=== PATIENT | female | born 1995 | race Caucasian/White ===

== ENCOUNTER → 2017-09-16 14:34 | Outpatient (REF) | payer BC, SELFPAY | LOC: LAB 14:34 | PROVIDERS: Family Provider Nurse Practitioner Obstetrics & Gynecology; PCP Family Medicine; Visit Provider Nurse Practitioner Obstetrics & Gynecology | DX: Z34.90 Encounter for supervision of normal pregnancy, unspecified, unspecified trimester (principal) | CPT/HCPCS: 86403 ==

== ENCOUNTER 2017-09-23 19:32 | Inpatient (IN) | payer BC, SELFPAY ==
[2017-09-23 15:24] VITALS: BP 118/69; PULSE 103; RESP 16; TEMP 36.4; O2SAT 97; BMI 33.9
[2017-09-23 16:33] LABS: Microscopic, Urine URINE MICROSCOPIC (MICROSCOPIC)
[2017-09-23 16:35] LABS: Appearance,Urine CLEAR (Clear); Bilirubin,Urine Negative (Negative); Blood, Urine Negative (Negative); Color,Urine YELLOW (Yellow); Glucose,Urine (UA) Negative (Negative); Ketones,Urine 1+ (Negative); Leukocyte Esterase,Urine TRACE (Negative); Nitrate,Urine Negative (Negative); PH,Urine 7.5 (5.0-8.5); Protein,Urine Negative (Negative); Urobilinogen,Urine 0.2 EU/dl (0.2)
[2017-09-23 16:47] LABS: Bacteria,Urine 2+ /lpf; Squamous Epithelial Cell,Urine 20-50 #/hpf (0-5)
--- NOTE | 2017-09-24 07:27 | P.PN_ITS ---
Internal Medicine - PN: Subj *Date: 09/24/17 *Time: 07:26 Interval history: She has continued to have retractions overnight. She has changed her cervix from 3-5 cm. He had tried to spur with fluids and Brethine however she continued to progress. As result of that we will go ahead and deliver her today. Exam Vital signs and Labs for Last 24 Hours: Temp Pulse Resp BP Pulse Ox 97.6 F 103 H 16 118/69 97 09/23/17 15:24 09/23/17 15:24 09/23/17 15:24 09/23/17 15:24 09/23/17 15:24 Laboratory Results - last 24 hr 09/23/17 15:05: Urine Color Yellow, Urine Appearance Clear, Urine pH 7.5, Ur Specific [place] 1.020, Urine Protein Negative, Urine Glucose (UA) Negative, Urine Ketones 1+, Urine Blood Negative, Urine Nitrate Negative, Urine Bilirubin Negative, Urine Urobilinogen 0.2, Ur Leukocyte Esterase Trace, Urine RBC None, Urine WBC 5-10, Ur Squamous Epith Cells 20-50, Urine Bacteria 2+ I & O for Last 24 hours: Intake & Output 09/21/17 09/22/17 09/23/17 09/24/17 11:59 11:59 11:59 11:59 Weight 210 lb - Constitutional no acute distress Assessment and Plan - Assessment and plan all Dx Assessment and Plan for all problems:: Since she has progressed on her own overnight we will ahead and deliver her today.
[2017-09-24 07:55] LABS: Basophils % 0.5 % (0.1-2.0); Eosinophils # 0.1 K/mm3 (0.0-0.4); Eosinophils % 0.9 % (0.1-12.0); Hematocrit 30.8 % (37.0-47.0); Hemoglobin 9.8 g/dL (12.2-16.2); Lymphocytes # 2.3 K/mm3 (0.7-4.5); Lymphocytes % 31.2 K/mm3 (10-50); Mean Corpuscular Hemoglobin 25.1 pg (27.0-31.2); Mean Corpuscular Volume 78.4 fl (81-99); Mean Platelet Volume 8.2 fl (7.4-10.4); Monocytes # 0.4 K/mm3 (0.1-1.0); Monocytes % 5.8 % (1.7-9.3); Neutrophils # 4.5 K/mm3 (1.8-7.8); Neutrophils % 61.7 % (37.0-80.0); Platelet Count 205 K/mm3 (142-424); Red Blood Count 3.92 M/mm3 (4.20-5.40); Red Cell Distribution Width 15.1 % (11.5-17.5); White Blood Count 7.3 K/mm3 (4.8-10.8)
--- NOTE | 2017-09-24 10:25 | HMH.LABNOT ---
Labor Note - Subjective: Date: 09/24/17 Time: 10:25 regular contraction - Objective: NST:: Reactive Contractions:: every 2-3 minutes Cervical Dilation:: 4-5 Effacement:: 75% Station: -2 Membranes: articially ruptured - Fetus: Monitoring?: Yes monitoring type:: Internal (I inserted an IUPC and scalp clip) - Assessment: Labor progressing?: Yes Cephalopelvic disproportion?: No Patient Problems: All Active Problems (Acute) - Plan: Anesthesia for epidural?: Yes Continue to labor down?: Yes Plan for ?: No Continue to monitor?: Yes Start pushing?: No
--- NOTE | 2017-09-24 10:25 | HMH.ANESCL ---
[facility] Anesthesia Checklist - Patient Identification Patient Identification: Arm Band - Structural Data Admitted From: Inpatient Planned Operative Procedure/s: labor epidural Consent for Planned Operative Procedure(s) Verified: Yes Verified Documents: Surgical Consent - Airway Assessment C-Spine Mobility Assessed: Yes TMJ Mobility Assessed: Yes Dentition: Good Dentition - Neurological Assessment Level of Consciousness: Awake, Alert - Anesthesia Plan Anesthesia Risk discussed: Yes Anesthesia Plan: Verified ASA Class: II Anesthesia Type: Epidural [facility] Anesthesia HX I have reviewed the patient's past medical history: Yes Medical History: Reports:: Hypertension, MRSA (BREAST 4 YRS AGO) Denies:: Cancer, Diabetes Mellitus Type 1, Diabetes Mellitus Type 2 Laterality Cases: Bilateral: Tonsillectomy, Other Other Surgeries: Yes: Other Amputation: No Fractures: No Comment: labor epid x 2 w vag delivery *Family Hx:: Cancer, Asthma, Hyperlipidemia, Heart Attack, Hypertension, Diabetes, Stroke, Thyroid Disorder
--- NOTE | 2017-09-24 10:34 | P.HP_ITS ---
OB - H&P: HPI Antepartum - History of Present Illness Chief complaint: Contractions - History of Present Criteria for establishing EDC:: LMP confirmed by 1st trimester US care: good care Ultrasounds: normal 1st trimester US, normal mid trimester US Obstetrical complications: none Medical complications: none Planning to breastfeed?: Yes [facility] History I have reviewed the patient's past medical history: Yes Medical History: Reports:: Hypertension, MRSA (BREAST 4 YRS AGO) Denies:: Cancer, Diabetes Mellitus Type 1, Diabetes Mellitus Type 2 Laterality Cases: Bilateral: Tonsillectomy, Other Other Surgeries: Yes: Other Amputation: No Fractures: No - *Social History Smoking Status: Never smoker Alcohol Intake: never Substance Use Type: denies use Occupational Status: unemployed Household Members: spouse, children - Psychiatric History Expresses thoughts of harming self/others: None Suicide Plan Description: No Plan *Family Hx:: Cancer, Asthma, Hyperlipidemia, Heart Attack, Hypertension, Diabetes, Stroke, Thyroid Disorder Para: 2 Review of Systems - Review of Systems Review of systems:: pertinent systems reviewed and negative unless documented below Meds Home Medications Medication Instructions Recorded Confirmed Type ferrous sulfate 325 mg (65 mg 325 mg PO DAILY tab 08/18/17 09/24/17 History iron) tablet 1 tab PO DAILY 08/18/17 09/24/17 History vitamin,calcium,echpzpix-pkir-cmcmz acid tablet Allergies Allergy/AdvReac Type Severity Reaction Status Date / Time No Known Allergies Allergy Verified 09/23/17 15:22 OB - H&P: Exam - Physical Exam Vital signs: Temp Pulse Resp BP Pulse Ox 97.6 F 103 H 16 118/69 97 09/23/17 15:24 09/23/17 15:24 09/23/17 15:24 09/23/17 15:24 09/23/17 15:24 - Constitutional no acute distress - Routine HEENT Exam Head: Present: normocephalic - Routine Neck Exam Present: supple OB - Results - Labs Labs: Short CBC 09/24/17 Range/Units 06:30 WBC 7.3 (4.8-10.8) K/mm3 Hgb 9.8 L (12.2-16.2) g/dL Hct 30.8 L (37.0-47.0) % Plt Count 205 (142-424) K/mm3 Urine 02/13/18 Range/Units 15:05 Urine Color Yellow (Yellow) Urine Appearance Clear (Clear) Urine pH 7.5 (5.0-8.5) Ur Specific [place] 1.020 (1.005-1.030) Urine Protein Negative (Negative) Urine Glucose (UA) Negative (Negative) OB - A/P Antepartum (1) labor in third trimester with delivery Current visit: Yes Status: Acute - Additional Plan Plan: expectant management (She had been admitted overnight and was having regular contractions. She changed her cervix to 5 cm. As result of this we are electing to deliver her.) Planning to breastfeed?: Yes
--- NOTE | 2017-09-24 12:20 | HMH.LABNOT ---
Labor Note - Subjective: Date: 09/24/17 Time: 12:21 regular contraction - Objective: Contractions:: every 2-3 minutes Cervical Dilation:: 5 Effacement:: 75% Station: -1 Membranes: articially ruptured - Fetus: Monitoring?: Yes monitoring type:: Internal - Assessment: Labor progressing?: Yes Cephalopelvic disproportion?: No Patient Problems: All Active Problems labor in third trimester with delivery (Acute) (Acute) - Plan: Anesthesia for epidural?: Yes Continue to labor down?: Yes Plan for ?: No Continue to monitor?: Yes Start pushing?: No
--- NOTE | 2017-09-24 13:24 | HMH.LABNOT ---
Labor Note - Subjective: Date: 09/24/17 Time: 13:24 regular contraction - Objective: NST:: Reactive Contractions:: every 2-3 minutes Cervical Dilation:: 9-10 Effacement:: 100% Station: +1 Membranes: articially ruptured - Fetus: Monitoring?: Yes monitoring type:: Internal - Assessment: Labor progressing?: Yes Cephalopelvic disproportion?: No Patient Problems: All Active Problems labor in third trimester with delivery (Acute) (Acute) - Plan: Anesthesia for epidural?: Yes Continue to labor down?: Yes Plan for ?: No Continue to monitor?: Yes Start pushing?: Yes
--- NOTE | 2017-09-24 13:47 | P.PCN_ITS ---
- Delivery Note Delivery Date:: 09/24/17 Delivery Time:: 13:33 Anesthesia Type: Epidural Was labor medically induced?: No Induction method: none delivered prior to 39 weeks?: Yes Justification for early elective delivery:: Active Labor Gender: Female at 1 minute: 7 at 5 minutes: 8 AF:: Clear fluid Delivery Procedure:: She is a 21-year-old 3 para 2 who was 37+ weeks gestational age. She was admitted on the evening of September 23, 2017 with regular contractions. We attempted to stop her labor with IV fluids and Brethine. However she continued to have contractions overnight and progressed from 3-5 cm overnight. As result of her progression overnight and our inability to stop her labor we ruptured membranes on the morning of September 24, 2017. Under labor epidural she progressed to full dilation and delivered spontaneously a liveborn female child at 1:33 PM in the afternoon of September 24, 2017. The baby had Apgars of 7 at 1 minute and 8 at 5 minutes. On deliver the head it was noted that there was a tight nuchal cord. I deliver the rest of the 's body atraumatically. This was followed by reduction of the nuchal cord. The baby cried spontaneously and the oral pharynx and nasopharynx were bulb suctioned. We then record pulse for probably 1 minute. The cord was then doubly clamped and cut and the was placed on the mother's abdomen for further care. The nurses assigned Apgars of 7 at 1 minute and 8 at 5 minutes. We then obtained cord blood as well as cord pH. Using gentle traction on the cord and countertraction the fundus I was able to easily do the placenta intact. He had a normal three-vessel cord. There were no perineal or vaginal laceration. She has a positive blood, 09. She was group B streptococcus negative. She plans to breast-feed. Delivery Nurse is Dr. Ruggiero. Estimated blood loss was approximately 400 cc. Placental Delivery Description: Spontaneous
[2017-09-24 13:51] LABS: Cord Blood PH 7.37 (7.35-7.45)
[2017-09-25 06:48] LABS: Hematocrit 31.2 % (37.0-47.0); Hemoglobin 9.9 g/dL (12.2-16.2)
[2017-09-25 08:35] VITALS: BP 120/75; PULSE 70; RESP 18; TEMP 36.8; O2SAT 98
--- NOTE | 2017-09-25 10:34 | HMH.ACPN2 ---
Internal Medicine - PN: Subj *Date: 09/25/17 *Time: 10:34 Interval history: She is doing well this morning. She is eating and drinking and eating. She is breast-feeding. Her lochia is normal. Exam Vital signs and Labs for Last 24 Hours: Temp Pulse Resp BP Pulse Ox 97.6 F 103 H 16 118/69 97 09/23/17 15:24 09/23/17 15:24 09/23/17 15:24 09/23/17 15:24 09/23/17 15:24 Laboratory Results - last 24 hr 09/24/17 13:40: Cord ABG pH 7.37 09/25/17 06:30: Hgb 9.9 L, Hct 31.2 L I & O for Last 24 hours: Intake & Output 09/22/17 09/23/17 09/24/17 09/25/17 11:59 11:59 11:59 11:59 Weight 210 lb Microbiology Reports for the Last 24 Hours: Microbiology 09/23/17 15:05 Urine,Clean Catch Urine Culture - Final Multiple organisms, suggests contamination. - Constitutional no acute distress Assessment and Plan (1) labor in third trimester with delivery Current visit: Yes Status: Acute Category: Medical Code(s): O60.14X0 - labor third trimester with delivery third trimester, not applicable or unspecified - Assessment and plan all Dx Assessment and Plan for all problems:: She continues to do well . She will be sent home tomorrow.
[2017-09-26 08:00] VITALS: BP 116/75; PULSE 70; RESP 18; TEMP 36.7; O2SAT 99
--- NOTE | 2017-09-26 08:12 | HMH.DCSUM ---
General - General Admission date: 09/23/17 Discharge date: 09/26/17 HPI HPI: She is a 21-year-old 3 now para 3 who is 37+ weeks gestational age. She came in in active labor having regular contractions. We attempted to stop her labor with both Brethine and IV fluids. She subsequently progressed overnight and as result of that we elected to deliver her. Objective Vital signs: Temp Pulse Resp BP Pulse Ox 98.2 F 70 18 120/75 98 09/25/17 08:35 09/25/17 08:35 09/25/17 08:35 09/25/17 08:35 09/25/17 08:35 no acute distress Hospital Course Hospital Course: She progressed from 3-5 cm overnight and as result of that we elected to deliver her. She had her membranes ruptured and under labor ball progressed to full dilation. She delivered spontaneously a liveborn female child at 1:33 PM in the afternoon of September 24, 2017. The baby was a liveborn female child weighing 7 lbs. 8 oz. with Apgars of 7 at 1 minute and 8 at 5 minutes. She has done well and has remained afebrile throughout her hospitalization. She is eating and drinking and ambulating. She is breast-feeding. She has a positive blood, she is rubella nonimmune and was group B streptococcus negative. She will receive MMR prior to discharge. She is discharged home to follow-up with me in approximately 2 weeks time she will continue with her vitamins and iron. She is just taking kkzw-pbu-uxkfaou analgesics for pain. DS: Diagnosis - Discharge Diagnosis (1) labor in third trimester with delivery Status: Acute Discharge Plan - Patient Discharge Instructions ACTIVITY: Continue current activity, No heavy lifting DIET: continue same diet - Follow up Plan Disposition: Home, Self-Usp Medications: Home Medications Medication Instructions Recorded Confirmed Type ferrous sulfate 325 mg (65 mg 325 mg PO DAILY tab 08/18/17 09/24/17 History iron) tablet 1 tab PO DAILY 08/18/17 09/24/17 History vitamin,calcium,jhqulahr-hiwq-aozen acid tablet Prescriptions/Medication Reconciliation: Continue vitamin,calcium,uhrfjgfa-utty-xcoit acid tablet 1 tab PO DAILY ferrous sulfate 325 mg (65 mg iron) tablet 325 mg PO DAILY tab
--- NOTE | 2017-09-26 08:15 | P.DS_ITS ---
General - General Admission date: 09/23/17 Discharge date: 09/26/17 HPI HPI: She is a 21-year-old 3 now para 3 who is 37+ weeks gestational age. She came in in active labor having regular contractions. We attempted to stop her labor with both Brethine and IV fluids. She subsequently progressed overnight and as result of that we elected to deliver her. Objective Vital signs: Temp Pulse Resp BP Pulse Ox 98.2 F 70 18 120/75 98 09/25/17 08:35 09/25/17 08:35 09/25/17 08:35 09/25/17 08:35 09/25/17 08:35 no acute distress Hospital Course Hospital Course: She progressed from 3-5 cm overnight and as result of that we elected to deliver her. She had her membranes ruptured and under labor ball progressed to full dilation. She delivered spontaneously a liveborn female child at 1:33 PM in the afternoon of September 24, 2017. The baby was a liveborn female child weighing 7 lbs. 8 oz. with Apgars of 7 at 1 minute and 8 at 5 minutes. She has done well and has remained afebrile throughout her hospitalization. She is eating and drinking and ambulating. She is breast- feeding. She has a positive blood, she is rubella nonimmune and was group B streptococcus negative. She will receive MMR prior to discharge. She is discharged home to follow-up with me in approximately 2 weeks time she will continue with her vitamins and iron. She is just taking over-the- counter analgesics for pain. DS: Diagnosis - Discharge Diagnosis (1) labor in third trimester with delivery Status: Acute Discharge Plan - Patient Discharge Instructions ACTIVITY: Continue current activity, No heavy lifting DIET: continue same diet - Follow up Plan Disposition: Home, Self-Prison Medications: Home Medications Medication Instructions Recorded Confirmed Type ferrous sulfate 325 mg (65 mg 325 mg PO DAILY tab 08/18/17 09/24/17 History iron) tablet 1 tab PO DAILY 08/18/17 09/24/17 History vitamin,calcium,uujpdzlu-inkg-ipyss acid tablet Prescriptions/Medication Reconciliation: Continue vitamin,calcium,cjiqodaj-stso-qgnjz acid tablet 1 tab PO DAILY ferrous sulfate 325 mg (65 mg iron) tablet 325 mg PO DAILY tab
== END 2017-09-26 10:20 | disposition home or self-care (01) | DRG 775 ==
LOC: OBOUT 19:34
PROVIDERS: Admitting Provider Obstetrics & Gynecology; Family Provider Nurse Anesthetist, Certified Registered; PCP Nurse Practitioner Obstetrics & Gynecology; Visit Provider Nurse Practitioner Obstetrics & Gynecology
DX: O69.81X0 Labor and delivery complicated by cord around neck, without compression, not applicable or unspecified (principal); Z37.0 Single live birth; Z3A.37 37 weeks gestation of pregnancy
CPT/HCPCS: 59409; 36415; 59025; 81001; 82800; 85014; 85018; 85025; 86850; 87086; 90707; 94761; C1758

== ENCOUNTER → 2020-03-20 12:09 | Outpatient (CLI) | payer BC, MEDICAID, SELFPAY ==
[2020-03-21 09:36] LABS: Hepatitis B Surf Ab Quant <3.1 mIU/mL (Immunity>9.9); Rubella Antibodies, IgG 1.32 index (Immune >0.99)
[2020-03-22 19:44] LABS: Measles Antibodies, IgG 24.8 AU/mL (Immune >16.4); Mumps Abs, IgG <9.0 AU/mL (Immune >10.9); Varicella Zoster IgG 1114 index (Immune >165); Varicella-Zoster Ab, IgM <0.91 index (0.00-0.90)
== END ==
PROVIDERS: Visit Provider Nurse Practitioner Family
DX: Z01.84 Encounter for antibody response examination (principal); Z11.59 Encounter for screening for other viral diseases
CPT/HCPCS: 36415; 86706; 86735; 86762; 86765; 86787

== ENCOUNTER 2021-02-08 21:53 | Emergency (ER) | payer SELFPAY ==
[2021-02-08 22:00] VITALS: BP 128/83; PULSE 69; RESP 18; TEMP 36.8; O2SAT 99; BMI 38.7
--- NOTE | 2021-02-08 23:23 | HMH.EDGENADL ---
ED Disposition Clinical Impression: Laceration Disposition: Home, Self-Care Condition on Discharge: Good Instructions: DI for Laceration Repair, DI for Wound Infection Additional Instructions: You have been evaluated for laceration to left index finger. Please keep wound clean and dry. Keep bandage in place. Keep dry for 24 hours. You may shower normally after that. Follow-up with your primary care doctor for wound check in 2 to 3 days. Have sutures removed in 10 days. Return to the emergency department for any new or worsening symptoms, pain, burning, redness, fevers. Referrals: Bere Schultz MD [Primary Care Provider] - Forms: Work/School Release Time of Disposition: 23:29 - Critical Care Critical Care Time: No Attestation: On 02/08/21, the high probability of a clinically significant, sudden or life threatening deterioration of the following system(s) required my full and direct attention, intervention and personal management. The time I documented below is in addition to time spent performing reported procedures but includes the following listed in this critical care notation. Medical Decision Making - Medical Records Medical records reviewed: Yes: I reviewed the patient's medical records. - Gregg Inquiry Pt receiving controlled substance: No Vital Signs: 02/08/21 22:00 Temperature 98.3 F Temperature Source Oral Pulse Rate [Right] 69 Respiratory Rate 18 Blood Pressure [Right Arm] 128/83 Blood Pressure Mean [Right Arm] 98 Blood Pressure Source [Right Arm] Automatic Cuff 02 Sat by Pulse Oximetry 99 Oxygen Delivery Method Room Air Orders (Tests/Meds): ED MEDICATIONS Discontinued Medications Generic Name Dose Route Start Last Admin Trade Name Freq PRN Reason Stop Dose Admin Lidocaine HCl 10 ml 02/08/21 22:55 Lidocaine 1% 10ml Mdv SQ 02/08/21 22:56 ONCE ONE Tetanus/Reduced Diphtheria/Acell Pertussis 0.5 ml 02/08/21 22:55 Tet/Diphth/Pert-Adult 0.5ml Syringe IM 02/08/21 22:56 .ONCE ONE Medical Decision Narrative: In summary this is a 25-year-old female presenting to the emergency department with a laceration to the dorsal aspect of her left index finger. Bleeding controlled on arrival. Flexion extension intact in the finger. Good capillary refill. Sensation intact. Tetanus updated. Anesthetized with lidocaine and repaired with sutures. Well-tolerated. Counseled on wound care. Stable for discharge General Adult HPI - General Chief complaint: Wound/Laceration Stated complaint: ao 02/08@2000LAC L INDEX FINGER Time Seen by Provider: 02/08/21 22:23 Mode of Arrival: Family Vehicle Limitations: No Limitations Description of Symptoms (Recalled from ER Triage Doc. by RN): Pt cut her pointer finger of her left hand this evening while attemting to remove a dog collar. It was a new knife and it slipped up and into her finger. Pt reports she had a tetanus shot 7yr ago. - History of Present Illness HPI narrative: 25 yo female presenting to the emergency department with a laceration to her left index finger. She was opening a box with a knife just prior to arrival. She cut the dorsal aspect of her left index finger. Has a laceration that is about 1 cm in size. Bleeding controlled on arrival. Pain is described as sharp, burning. No other lacerations. She is able to flex and extend the digit at all joints. No damage to the nail. Last tetanus shot was around 7 years ago. - Related Data Home Medications Medication Instructions Recorded Confirmed No Known Home Medications 10/03/19 10/03/19 Allergies Allergy/AdvReac Type Severity Reaction Status Date / Time No Known Allergies Allergy Verified 10/03/19 17:02 [facility] [place] History - Hepatitis A Screen Drug use history?: No High risk sexual behaviors?: No History of sexually transmitted infection?: No Currently employed?: No Childcare worker?: No Do you have indoor plumbing?: Yes Do you have e
[2021-02-08 23:43] VITALS: BP 126/76; PULSE 65; RESP 16; TEMP 36.8; O2SAT 99
== END 2021-02-08 23:45 | disposition home or self-care (01) ==
PROVIDERS: Emergency Provider Emergency Medicine; PCP Family Medicine
DX: S61.211A Laceration without foreign body of left index finger without damage to nail, initial encounter (principal); W26.0XXA Contact with knife, initial encounter; Y92.019 Unspecified place in single-family (private) house as the place of occurrence of the external cause; Z23 Encounter for immunization
CPT/HCPCS: 12001; 90715; 99281; 99282

== ENCOUNTER 2021-02-11 11:42 | Emergency (ER) | payer SELFPAY ==
[2021-02-11 11:49] VITALS: BP 121/82; PULSE 116; RESP 14; TEMP 37.1; O2SAT 99; BMI 37.1
--- NOTE | 2021-02-11 12:01 | HMH.EDUTC ---
[place] Disposition Clinical Impression: Strep throat Disposition: Home, Self-Care Condition on Discharge: Good Instructions: Sore Throat, DI for Pharyngitis/Tonsillopharyngitis -- Adult Additional Instructions: Drink plenty of fluids. Take tylenol or ibuprofen for pain or fever. Take the medications as directed. Follow up with your regular doctor. GO TO THE ER FOR ANY WORSENING SYMPTOMS Prescriptions: Ondansetron [Zofran 4mg ODT] 4 mg PO Q8HP PRN #12 tab.rapdis PRN Reason: Nausea Transmission Status: Received by [id number] Azithromycin [Z-Pedro Luis 250mg Tab*] 250 mg PO UD DOSE PK #6 tab Transmission Status: Received by [id number] Referrals: Bere Schultz MD [Primary Care Provider] - Forms: Work/School Release Time of Disposition: 12:16 Medical Decision Making - Medical Records Medical records reviewed: No: I reviewed the patient's medical records. - Gregg Inquiry Pt receiving controlled substance: No Vital Signs: 02/11/21 11:49 02/11/21 12:07 Temperature 98.7 F 98.7 F Temperature Source Oral Pulse Rate 116 H Pulse Rate [Left] 116 H Respiratory Rate 14 14 Blood Pressure 121/82 Blood Pressure [Right Arm] 121/82 Blood Pressure Mean [Right Arm] 95 Blood Pressure Source [Right Arm] Automatic Cuff Blood Pressure Position [Right Arm] Sitting 02 Sat by Pulse Oximetry 99 - Lab Data Lab results reviewed: Yes: I reviewed the patient's lab results. Lab Results 02/11/21 11:55: Strep Scn [facility] Positive A Orders (Tests/Meds): ORDERS Category Date Time Status Covid-19 Nasal PCR ([facility]) Routine Lab 02/11/21 12:16 Received [place] HPI - General Stated complaint: sore throat, headache, body aches Time Seen by Provider: 02/11/21 12:01 Mode of Arrival: Ambulatory Source of Information: Patient Limitations: No Limitations Description of Symptoms (Recalled from Triage Doc. by RN): pt c/o sore throat, body aches and a BAI. pt states her just got over strep. HEENT Symptoms (Recalled from RN notes): Yes (sore throat and BAI) Resp Symptoms (Recalled from RN notes): No Skin Symptoms (Recalled from RN notes): No MS Symptoms (Recalled from RN notes): No Functional Status (Recalled from RN notes): na - History of Present Illness Provider Complaint: She c/o sore throat, chilling, sinus congestion and pressure, and nausea since yesterday. - Related Data Previous Rx's Medication Instructions Recorded Azithromycin [Z-Pedro Luis 250mg Tab*] 250 mg PO UD DOSE PK #6 tab 02/11/21 Ondansetron [Zofran 4mg ODT] 4 mg PO Q8HP PRN #12 tab.rapdis 02/11/21 Allergies Allergy/AdvReac Type Severity Reaction Status Date / Time No Known Allergies Allergy Verified 10/03/19 17:02 - Worker's Comp Is this a Worker's Comp case?: No [facility] History - Hepatitis A Screen Drug use history?: No High risk sexual behaviors?: No History of sexually transmitted infection?: No Currently employed?: No Childcare worker?: No Do you have indoor plumbing?: Yes Do you have electricity?: Yes Attestation statement:: This patient has been screened for Hepatitis A risk factors. I have reviewed the patient's past medical history: Yes Medical History: Reports:: Hypertension, MRSA Denies:: Cancer, Diabetes Mellitus Type 1, Diabetes Mellitus Type 2 Laterality Cases: Bilateral: Tonsillectomy, Other Other Surgeries: Yes: Other Amputation: No Fractures: No Comment: labor epid x 2 w vag delivery - Social History Smoking Status: Never smoker Alcohol Intake: never Substance Use Type: denies use Occupational Status: unemployed Household Members: spouse, children Family Hx:: Cancer, Asthma, Hyperlipidemia, Heart Attack, Hypertension, Diabetes, Stroke, Thyroid Disorder Comment: Arthritis CONTENT CHECKER history: ROS Obtained: Yes All systems reviewed & no additional complaints - Constitutional Constitutional: Reports chills, Reports fever(s), Reports poor appetite, Rep
[2021-02-11 12:04] LABS: UTC Strep Screen (Rapid) Positive (Negative)
[2021-02-11 12:07] VITALS: BP 121/82; PULSE 116; RESP 14; TEMP 37.1
== END 2021-02-11 12:27 | disposition home or self-care (01) ==
PROVIDERS: Emergency Provider Nurse Practitioner Family; PCP Family Medicine
DX: J02.0 Streptococcal pharyngitis (principal); I10 Essential (primary) hypertension
CPT/HCPCS: 87880; 99202; G0463; U0003

== ENCOUNTER → 2021-12-14 08:29 | Outpatient (CLI) | payer BC, SELFPAY ==
[2021-12-14 09:49] LABS: HCG,Quantitative 965 mIU/ml (0-5.42)
== END ==
PROVIDERS: Visit Provider Nurse Practitioner Obstetrics & Gynecology
DX: Z34.90 Encounter for supervision of normal pregnancy, unspecified, unspecified trimester (principal)
CPT/HCPCS: 36415; 84702

== ENCOUNTER 2021-12-22 11:11 | Emergency (ER) | payer BC, SELFPAY ==
[2021-12-22 11:15] VITALS: BP 101/78; PULSE 96; RESP 20; TEMP 36.9; O2SAT 96; BMI 36.5
[2021-12-22 11:40] LABS: Strep Scrn Group A (Rapid) Negative (Negative)
--- NOTE | 2021-12-22 11:50 | HMH.EDUTC ---
[facility] [place] Disposition Clinical Impression: Strep throat Disposition: Home, Self-Care Condition on Discharge: Good Instructions: Strep Throat, DI for Strep Throat Additional Instructions: Drink plenty of fluids. Take tylenol or ibuprofen for pain or fever. Take the medications as directed. Follow up with your regular doctor. GO TO THE ER FOR ANY WORSENING SYMPTOMS Throw your tooth brush away and get a new one. Prescriptions: Brompheniramine/Pseudoephed/Dm [Bromfed Dm Cough Syrup] 5 ml PO Q6HP PRN #240 ml PRN Reason: Cough Transmission Status: Pending to [facility] Ibuprofen [Ibuprofen 800mg Tablet] 800 mg PO Q8HP PRN #30 tab PRN Reason: Moderate Pain Transmission Status: Pending to [facility] Amoxicillin [Amoxicillin 500mg Tab] 500 mg PO TID 10 Days #30 tab Transmission Status: Pending to [facility] Referrals: Bere Schultz MD [Primary Care Provider] - Time of Disposition: 11:54 Medical Decision Making - Medical Records Medical records reviewed: No: I reviewed the patient's medical records. - Gregg Inquiry Pt receiving controlled substance: No Vital Signs: 12/22/21 11:15 Temperature 98.5 F Temperature Source Oral Pulse Rate [Left Brachial] 96 H Respiratory Rate 20 Blood Pressure [Left Arm] 101/78 L Blood Pressure Mean [Left Arm] 85 Blood Pressure Source [Left Arm] Automatic Cuff Blood Pressure Position [Left Arm] Sitting 02 Sat by Pulse Oximetry 96 Oxygen Delivery Method Room Air - Lab Data Lab results reviewed: Yes: I reviewed the patient's lab results. Lab Results 12/22/21 11:20: Group A Strep Rapid Negative Orders (Tests/Meds): ORDERS Category Date Time Status Strep Screen Confirmation Stat Micro 12/22/21 11:20 Received [facility] HPI - General Stated complaint: sore throat,headache Time Seen by Provider: 12/22/21 11:50 - History of Present Illness Provider Complaint: She c/o sore throat for the past 2 days. Her was diagnosed with strep throat. - Related Data Previous Rx's Medication Instructions Recorded Amoxicillin [Amoxicillin 500mg Tab] 500 mg PO TID 10 Days #30 tab 12/22/21 Brompheniramine/Pseudoephed/Dm 5 ml PO Q6HP PRN #240 ml 12/22/21 [Bromfed Dm Cough Syrup] Ibuprofen [Ibuprofen 800mg 800 mg PO Q8HP PRN #30 tab 12/22/21 Tablet] Allergies Allergy/AdvReac Type Severity Reaction Status Date / Time No Known Allergies Allergy Verified 05/31/21 17:17 [facility] History - Hepatitis A Screen Attestation statement:: This patient has been screened for Hepatitis A risk factors. I have reviewed the patient's past medical history: Yes Medical History: Reports:: Hypertension, MRSA Denies:: Cancer, Diabetes Mellitus Type 1, Diabetes Mellitus Type 2 Laterality Cases: Bilateral: Tonsillectomy, Other Other Surgeries: Yes: Other Amputation: No Fractures: No Comment: labor epid x 2 w vag delivery - Social History Smoking Status: Never smoker Alcohol Intake: never Substance Use Type: denies use Occupational Status: employed Household Members: children, spouse Family Hx:: Cancer, Asthma, Hyperlipidemia, Heart Attack, Hypertension, Diabetes, Stroke, Thyroid Disorder Comment: Arthritis HEALTH INFORMATION TECHNICIAN history: ROS Obtained: Yes All systems reviewed & no additional complaints - Constitutional Constitutional: Reports as per HPI - Eyes Eyes: Denies eye discharge - ENT Ears, Nose, Mouth, and Throat: Reports as per HPI - Cardiovascular Cardiovascular: Denies chest pain - Respiratory Respiratory: Reports as per HPI Physical Exam - General General appearance: alert, in no apparent distress - Head Head exam: atraumatic, normocephalic, normal inspection - Eye Eye exam: Present: normal appearance, PERRL, EOMI - ENT ENT exam: Present: normal exam, normal oropharynx, mucous membranes moist, TM's normal bilaterally, normal external ear exam - Neck Neck exam: Present: normal
[2021-12-22 11:55] VITALS: BP 101/78; PULSE 96; RESP 20; TEMP 36.9; O2SAT 96
== END 2021-12-22 12:01 | disposition home or self-care (01) ==
PROVIDERS: Emergency Provider Nurse Practitioner Family; PCP Family Medicine
DX: J02.0 Streptococcal pharyngitis (principal); I10 Essential (primary) hypertension
CPT/HCPCS: 87430; 99212; G0463

== ENCOUNTER → 2022-02-08 13:23 | Outpatient (CLI) | payer OTHER, SELFPAY ==
[2022-02-08 14:03] LABS: Basophils # 0.1 K/mm3 (0-0.2); Basophils % 0.7 % (0.1-2.0); Eosinophils # 0.1 K/mm3 (0.0-0.4); Eosinophils % 1.4 % (0.1-12.0); Hematocrit 41.2 % (37.0-47.0); Hemoglobin 13.3 g/dL (12.2-16.2); Lymphocytes # 2.1 K/mm3 (0.7-4.5); Lymphocytes % 26.4 % (10-50); Mean Corpuscular HGB Conc 32.2 g/dL (31.8-35.4); Mean Corpuscular Hemoglobin 27.7 pg (27.0-31.2); Mean Platelet Volume 8.4 fl (7.4-10.4); Monocytes # 0.2 K/mm3 (0.1-1.0); Neutrophils # 5.4 K/mm3 (1.8-7.8); Neutrophils % 68.6 % (37.0-80.0); Platelet Count 250 K/mm3 (142-424); Red Cell Distribution Width 14.3 % (11.5-17.5); White Blood Count 7.9 K/mm3 (4.8-10.8)
[2022-02-10 08:13] LABS: Rubella Antibodies, IgG 1.22 index (Immune >0.99)
[2022-02-10 09:40] LABS: HIV Screen 4th Generation wRfx Non Reactive (Non Reactive); Hepatitis B Surface Antigen Negative (Negative); Hepatitis C Antibody 0.1 s/co ratio (0.0-0.9); Rapid Plasma Reagin Ab Titer Non Reactive (NonRea<1:1)
== END ==
PROVIDERS: PCP Family Medicine; Visit Provider Obstetrics & Gynecology
DX: Z34.90 Encounter for supervision of normal pregnancy, unspecified, unspecified trimester (principal); Z3A.01 Less than 8 weeks gestation of pregnancy
CPT/HCPCS: 36415; 85025; 86592; 86703; 86762; 86850; 87340; 87380; G0432

== ENCOUNTER → 2022-02-14 14:39 | Outpatient (CLI) | payer BC, SELFPAY | PROVIDERS: PCP Family Medicine; Visit Provider Obstetrics & Gynecology | DX: Z31.430 Encounter of female for testing for genetic disease carrier status for procreative management (principal); Z36.0 Encounter for antenatal screening for chromosomal anomalies; O28.3 Abnormal ultrasonic finding on antenatal screening of mother | CPT/HCPCS: 36415 ==

== ENCOUNTER → 2022-04-04 12:56 | Outpatient (CLI) | payer OTHER, SELFPAY ==
--- NOTE | 2022-04-04 13:02 | US_ITS ---
FINAL REPORT CLINICAL HISTORY: 20 weeks gestation anatomy scan FINDINGS: There is a single live intrauterine gestation. Presentation is cephalic. The cervix is closed and measures 3.6 cm. Placenta is anterior. movement is noted. Heart rate is measured at 155 beats per minute Three-vessel cord with satisfactory umbilical cord insertion. Four-chamber heart is noted. brain and ventricles are unremarkable. Chest and diaphragm are unremarkable. ABDOMEN: Both kidneys are unremarkable. Stomach is unremarkable. SPINE: No anomalies identified. Both arms and legs noted. AMNIOTIC FLUID: Appropriate amount. MEASUREMENTS: ULTRASOUND AGE: 20 weeks 4 days. GESTATION AGE: 20 weeks 4 days. ESTIMATED WEIGHT: 367 grade GROWTH PERCENTILE: 49% BPD: 4.8 cm corresponding with 20 weeks 3 days. OFD: 6.2 cm corresponding with 20 weeks 5 days. HC: 17.3 cm corresponding with 19 weeks 6 days. AC: 15.8 cm corresponding with 21 weeks 0 days. FL: 3.4 cm corresponding with 20 weeks 4 days. CEREBELLUM: 1.9 cm corresponding with 20 weeks 0 days. HUMERUS: 3.3 cm corresponding with 21 weeks 1 day. HC/AC: 1.09 CI: 77% FL/BPD: 71% FL/AC: 21% IMPRESSION: Single living IUP with an ultrasound age of 20 weeks 4 days. No anomalies noted. Reviewed, Interpreted and Dictated by Saira Canales MD Transcribed by Crystal Johnson Authenticated and [facility]
== END ==
PROVIDERS: PCP Family Medicine; Visit Provider Obstetrics & Gynecology
DX: Z34.90 Encounter for supervision of normal pregnancy, unspecified, unspecified trimester (principal); Z3A.20 20 weeks gestation of pregnancy
CPT/HCPCS: 76811

== ENCOUNTER 2022-04-08 08:09 | Emergency (ER) | payer OTHER, SELFPAY ==
[2022-04-08 08:30] VITALS: BP 120/73; PULSE 71; RESP 17; TEMP 36.8; O2SAT 100; BMI 36.6
[2022-04-08 08:45] LABS: Influenza A, PCR Not Detected (NotDetected); Influenza B, PCR Not Detected (NotDetected)
--- NOTE | 2022-04-08 08:51 | EXP.UTC ---
Discharge Plan Disposition Patient Disposition: Home, Self-Care Condition: Good Prescriptions Prescriptions: No Action prenat.vits,franca,[id number] Tablet 1 tab PO DAILY ondansetron 4 mg tablet,disintegrating 4 mg PO Q8H PRN (Reason: nausea and vomiting) Qty: 20 1RF Referrals Follow up/Referrals: Bere Schultz MD [Primary Care Provider] - See instructions Activity Restrictions/Add. Instructions Additional Instructions/Restrictions: *Monitor Temp, Over the counter Motrin or Tylenol as directed/as needed Tylenol every 4 hours and Motrin every 6 hours (as long as your family doctor has told you that you can take it) for fever or pain. and straight to ER if unable to lower temp less than 101.0 after medication given *Warm salt water gargles may help to soothe the throat *Throat Lozenges? *Warm fluids like tea with honey may help to soothe the throat? *Sleep elevated *Humidifier/Vaporizer Follow up IMMEDIATELY for new or worsening symptoms or no Noticeable improvement over the next 48-72 hours. 911 for difficulty breathing or swallowing You were tested for today for COVID19 your test result should be back in the next 24-48 hours, you may may check your results on the [facility] My Health Portal Make sure to take your Vitamins Vit. C Vit D and Zinc if you can take them Clinical Impressions Clinical Impression: Viral syndrome, Exposure to COVID-19 virus Stand Alone Forms Stand Alone Forms: Work/School Release Discharge ED Provider: Heather Haro [facility] [place] HPI General Stated complaint: Headache, drainage, aches, +home covid test 04/08 Mode of Arrival: Ambulatory Source of Information: Patient Limitations: No Limitations Time Seen by Provider: 04/08/22 08:59 Description of Symptoms (Recalled from Triage Doc. by RN): COVID TEST D/T EXPOSURE. C/O SORE THROAT, RUNNY NOSE, HEADACHE, BODY ACHES, AND COUGH SINCE LAST NIGHT HEENT Symptoms (Recalled from RN notes): Yes Resp Symptoms (Recalled from RN notes): Yes Skin Symptoms (Recalled from RN notes): No MS Symptoms (Recalled from RN notes): No Functional Status (Recalled from RN notes): WNL History of Present Illness Provider Complaint: Patient states that her daughter recently tested positive for COVID States that last night she went into work feeling fine and it hit her hard and fast States that she started with body aches and chills, scratchy throat and headache so this morning she was feeling worse so she came in to get checked for COVID Related Data Home Medications Medication Instructions Recorded Confirmed prenat.vits,franca,kui-[id number] 1 tab PO DAILY 12/27/21 03/21/22 Previous Rx's Medication Instructions Recorded ondansetron 4 mg disintegrating 4 mg PO Q8H PRN nausea and 01/24/22 tablet vomiting #20 tabs Allergies Allergy/AdvReac Type Severity Reaction Status Date / Time No Known Allergies Allergy Verified 03/21/22 15:04 Worker's Comp Is this a Worker's Comp case?: No PFSH [facility] Surgical History (Updated 04/08/22 @ 08:42 by Edie Miner RN) History of cholecystectomy History of tonsillectomy Tympanic tube insertion Social History (Updated 04/08/22 @ 08:43 by Edie Miner RN) Smoking Status: Never smoker alcohol intake: never substance use type: denies use current occupational status: other Travel in the last 8 weeks: None household members: spouse and children caffeine: Yes ROS Obtained: Yes All systems reviewed & no additional complaints except as documented and Yes Systems reviewed as appropriate & no additional complaints except as documented Constitutional Constitutional: Reports system reviewed and no additional complaints, except as documented, Reports body ache, Reports chills, Reports fatigue and Reports headache(s) ENT Ears, Nose, Mouth, and Throat: Reports system reviewed and no additional complaints, except as documented, Reports headache(s), Reports nasal congestion, Re
[2022-04-08 08:57] VITALS: BP 120/73; PULSE 71; RESP 17; TEMP 36.8; O2SAT 100
[2022-04-08 09:06] LABS: Coronavirus 19, PCR Detected (NotDetected)
== END 2022-04-08 09:00 | disposition home or self-care (01) ==
PROVIDERS: Emergency Provider Nurse Practitioner; PCP Family Medicine
DX: U07.1 COVID-19 (principal)
CPT/HCPCS: 99212; C9803; G0463; U0003; U0005

== ENCOUNTER 2022-05-09 21:22 | Outpatient (CLI) | payer OTHER, SELFPAY ==
[2022-05-09 21:33] VITALS: BP 121/79; PULSE 77; RESP 18; TEMP 36.8; O2SAT 99; BMI 37.1; BMI 39.4
[2022-05-09 21:47] LABS: Microscopic, Urine URINE MICROSCOPIC (MICROSCOPIC)
[2022-05-09 21:48] LABS: Appearance,Urine CLEAR (Clear); Bilirubin,Urine Negative (Negative); Blood, Urine Negative (Negative); Color,Urine YELLOW (Yellow); Glucose,Urine (UA) Negative (Negative); Ketones,Urine Negative (Negative); Leukocyte Esterase,Urine 1+ (Negative); Nitrate,Urine Negative (Negative); PH,Urine 6.5 (5.0-8.5); Protein,Urine Negative (Negative); Specific Gravity, Urine <= 1.005 (1.005-1.030); Urobilinogen,Urine 0.2 EU/dl (0.2)
[2022-05-09 22:02] LABS: Benzodiazepines Screen,Urine Negative ng/ml (<200)
[2022-05-09 22:03] LABS: Amphetamine/Metha Screen,Urine Negative ng/ml (<1000); Bacteria,Urine 1+ /lpf; Barbiturates Screen,Urine Negative ng/ml (<200)
[2022-05-09 22:04] LABS: Cannabinoid Screen,Urine Negative ng/ml (<50); Methadone Screen,Urine Negative ng/ml (<300)
[2022-05-09 22:05] LABS: Cocaine Screen,Urine Negative ng/ml (<300)
[2022-05-09 22:06] LABS: Opiate Screen,Urine Negative ng/ml (<300); Phencyclidine Screen,Urine Negative ng/ml (<25)
== END 2022-05-09 23:50 | disposition home or self-care (01) ==
LOC: OBOUT 21:25 → OB 21:26
PROVIDERS: PCP Obstetrics & Gynecology; Visit Provider Obstetrics & Gynecology
DX: O47.02 False labor before 37 completed weeks of gestation, second trimester (principal); Z3A.25 25 weeks gestation of pregnancy
CPT/HCPCS: 59025; 80305; 81001; 87086; 96365; 96367; 96372; G0463; J0696

== ENCOUNTER 2022-05-12 20:05 | Outpatient (CLI) | payer OTHER, SELFPAY ==
[2022-05-12 20:38] VITALS: BMI 37.5
[2022-05-12 20:44] LABS: Microscopic, Urine URINE MICROSCOPIC (MICROSCOPIC)
[2022-05-12 20:49] LABS: Appearance,Urine CLEAR (Clear); Bilirubin,Urine Negative (Negative); Blood, Urine Negative (Negative); Color,Urine YELLOW (Yellow); Glucose,Urine (UA) Negative (Negative); Ketones,Urine Negative (Negative); Leukocyte Esterase,Urine Negative (Negative); Nitrate,Urine Negative (Negative); PH,Urine 6.5 (5.0-8.5); Protein,Urine Negative (Negative); Specific Gravity, Urine <= 1.005 (1.005-1.030); Urobilinogen,Urine 0.2 EU/dl (0.2)
[2022-05-12 21:00] LABS: Amphetamine/Metha Screen,Urine Negative ng/ml (<1000); Barbiturates Screen,Urine Negative ng/ml (<200)
[2022-05-12 21:01] LABS: Bacteria,Urine Trace /lpf; Benzodiazepines Screen,Urine Negative ng/ml (<200); Cannabinoid Screen,Urine Negative ng/ml (<50)
[2022-05-12 21:02] LABS: Cocaine Screen,Urine Negative ng/ml (<300)
[2022-05-12 21:03] LABS: Methadone Screen,Urine Negative ng/ml (<300)
[2022-05-12 21:04] LABS: Phencyclidine Screen,Urine Negative ng/ml (<25)
[2022-05-12 21:05] LABS: Opiate Screen,Urine Negative ng/ml (<300)
[2022-05-12 21:13] VITALS: BP 120/66; PULSE 89; RESP 18; TEMP 36.7; O2SAT 98; BMI 37.5
[2022-05-12 21:18] LABS: Fetal Fibronectin (Rapid) Positive (Negative)
== END 2022-05-12 21:51 | disposition home or self-care (01) ==
LOC: OBOUT 20:06 → OB 20:07
PROVIDERS: PCP Family Medicine; Visit Provider Obstetrics & Gynecology
DX: O26.892 Other specified pregnancy related conditions, second trimester (principal); Z3A.25 25 weeks gestation of pregnancy
CPT/HCPCS: 80305; 81001; 82731; G0463

== ENCOUNTER 2022-05-16 14:28 | Outpatient (CLI) | payer OTHER, SELFPAY ==
[2022-05-16 15:10] VITALS: BMI 37.4
[2022-05-16 15:11] VITALS: BP 117/66; PULSE 95; RESP 18; O2SAT 96; BMI 37.4
[2022-05-16 15:15] LABS: Microscopic, Urine URINE MICROSCOPIC (MICROSCOPIC)
[2022-05-16 15:17] LABS: Appearance,Urine CLEAR (Clear); Bilirubin,Urine Negative (Negative); Blood, Urine Negative (Negative); Color,Urine YELLOW (Yellow); Glucose,Urine (UA) Negative (Negative); Ketones,Urine Negative (Negative); Leukocyte Esterase,Urine 3+ (Negative); Nitrate,Urine Negative (Negative); PH,Urine 6.5 (5.0-8.5); Protein,Urine Negative (Negative); Urobilinogen,Urine 0.2 EU/dl (0.2)
[2022-05-16 15:32] LABS: Bacteria,Urine 1+ /lpf
[2022-05-16 15:33] LABS: Amphetamine/Metha Screen,Urine Negative ng/ml (<1000)
[2022-05-16 15:34] LABS: Barbiturates Screen,Urine Negative ng/ml (<200); Benzodiazepines Screen,Urine Negative ng/ml (<200); RBC,Urine Occasional #/hpf (0-3); Squamous Epithelial Cell,Urine 20-50 #/hpf (0-5); WBC,Urine 50-100 #/hpf (0-3)
[2022-05-16 15:35] LABS: Cannabinoid Screen,Urine Negative ng/ml (<50)
[2022-05-16 15:36] LABS: Cocaine Screen,Urine Negative ng/ml (<300); Methadone Screen,Urine Negative ng/ml (<300)
[2022-05-16 15:37] LABS: Phencyclidine Screen,Urine Negative ng/ml (<25)
[2022-05-16 15:38] LABS: Opiate Screen,Urine Negative ng/ml (<300)
--- NOTE | 2022-05-16 15:57 | US_ITS ---
FINAL REPORT CLINICAL HISTORY: check cervical length FINDINGS: Sonographic images of the pelvis were obtained. There is a single intrauterine consistent with 26 weeks 2 days. Cardiac activity is confirmed at 138 beats per minute. The cervix is normal in length at 4.3 cm. IMPRESSION: Single intrauterine with ultrasound age of 26 weeks 2 days. Normal cervical length at 4.3 cm. Reviewed, Interpreted and Dictated by Blaine Babcock III, MD Transcribed by Kadi Nur Authenticated and [facility]
== END 2022-05-16 16:33 | disposition home or self-care (01) ==
LOC: OBOUT 14:30 → OB 14:31
PROVIDERS: PCP Family Medicine; Visit Provider Obstetrics & Gynecology
DX: O26.899 Other specified pregnancy related conditions, unspecified trimester (principal); Z3A.26 26 weeks gestation of pregnancy
CPT/HCPCS: 59025; 76817; 80305; 81001; 87086; G0463

== ENCOUNTER → 2022-05-24 08:29 | Outpatient (CLI) | payer OTHER, SELFPAY ==
[2022-05-24 08:37] LABS: MANUAL DIFFERENTIAL MANUAL DIFFERENTIAL (MANUAL DIFF)
[2022-05-24 08:55] LABS: Basophils # 0.2 K/mm3 (0-0.2); Basophils % 1.1 % (0.1-2.0); Eosinophils # 0.2 K/mm3 (0.0-0.4); Eosinophils % 1.3 % (0.1-12.0); Hematocrit 36.9 % (37.0-47.0); Hemoglobin 11.9 g/dL (12.2-16.2); Lymphocytes # 2.5 K/mm3 (0.7-4.5); Lymphocytes % 19.2 % (10-50); Mean Corpuscular HGB Conc 32.4 g/dL (31.8-35.4); Mean Corpuscular Hemoglobin 27.5 pg (27.0-31.2); Mean Corpuscular Volume 84.8 fl (81-99); Monocytes # 0.6 K/mm3 (0.1-1.0); Monocytes % 4.8 % (1.7-9.3); Neutrophils # 9.6 K/mm3 (1.8-7.8); Neutrophils % 73.6 % (37.0-80.0); Platelet Count 315 K/mm3 (142-424); Red Blood Count 4.35 M/mm3 (4.20-5.40); Red Cell Distribution Width 14.7 % (11.5-17.5)
[2022-05-24 09:23] LABS: Glucose,Fasting 92 mg/dl (74-100)
[2022-05-24 11:17] LABS: Glucose 1 Hour 146 mg/dL (74-100)
[2022-05-24 13:36] LABS: Eosinophils % 1 % (0-3); Lymphocytes % 20 % (10-50); Monocytes % 4 % (2-9); Neutrophils % 74 % (42-76); Total Cells Counted 100
[2022-05-24 13:37] LABS: Platelet Estimate Normal; RBC Morphology Normal
== END ==
PROVIDERS: PCP Family Medicine; Visit Provider Obstetrics & Gynecology
DX: Z34.90 Encounter for supervision of normal pregnancy, unspecified, unspecified trimester (principal)
CPT/HCPCS: 36415; 82951; 85007; 85014; 85018; 85048; 85049

== ENCOUNTER → 2022-05-29 08:06 | Outpatient (CLI) | payer OTHER, SELFPAY ==
[2022-05-29 08:48] LABS: Glucose,Fasting 90 mg/dl (74-100)
[2022-05-29 10:09] LABS: Glucose 1 Hour 172 mg/dL (74-100)
[2022-05-29 11:28] LABS: Glucose 2 Hour 164 mg/dL (74-100)
[2022-05-29 15:53] LABS: Glucose 3 Hour 137 mg/dL (74-100)
== END ==
PROVIDERS: PCP Family Medicine; Visit Provider Obstetrics & Gynecology
DX: Z34.90 Encounter for supervision of normal pregnancy, unspecified, unspecified trimester (principal); Z3A.25 25 weeks gestation of pregnancy
CPT/HCPCS: 36415; 82951

== ENCOUNTER 2022-06-06 16:29 | Outpatient (CLI) | payer OTHER, SELFPAY ==
[2022-06-06 16:46] VITALS: BMI 37.9
[2022-06-06 16:51] LABS: Microscopic, Urine URINE MICROSCOPIC (MICROSCOPIC)
[2022-06-06 16:52] LABS: Appearance,Urine CLEAR (Clear); Bilirubin,Urine Negative (Negative); Blood, Urine Negative (Negative); Color,Urine YELLOW (Yellow); Glucose,Urine (UA) Negative (Negative); Ketones,Urine Negative (Negative); Leukocyte Esterase,Urine 1+ (Negative); Nitrate,Urine Negative (Negative); Protein,Urine Negative (Negative)
[2022-06-06 17:04] LABS: Benzodiazepines Screen,Urine Negative ng/ml (<200)
[2022-06-06 17:05] LABS: Amphetamine/Metha Screen,Urine Negative ng/ml (<1000)
[2022-06-06 17:06] LABS: Barbiturates Screen,Urine Negative ng/ml (<200); Cannabinoid Screen,Urine Negative ng/ml (<50)
[2022-06-06 17:07] LABS: Cocaine Screen,Urine Negative ng/ml (<300); Methadone Screen,Urine Negative ng/ml (<300)
[2022-06-06 17:08] LABS: Opiate Screen,Urine Negative ng/ml (<300)
[2022-06-06 17:09] LABS: Phencyclidine Screen,Urine Negative ng/ml (<25)
[2022-06-06 17:15] LABS: Amorphous Sediment,Urine 3+ /lpf; Bacteria,Urine 1+ /lpf; RBC,Urine Occasional #/hpf (0-3)
[2022-06-06 17:52] VITALS: BP 121/78; PULSE 74; RESP 17; TEMP 36.6; O2SAT 100; BMI 37.8
== END 2022-06-06 18:25 | disposition home or self-care (01) ==
LOC: OBOUT 16:31 → OB 16:32
PROVIDERS: PCP Family Medicine; Visit Provider Obstetrics & Gynecology
DX: O47.00 False labor before 37 completed weeks of gestation, unspecified trimester (principal); Z3A.29 29 weeks gestation of pregnancy
CPT/HCPCS: 59025; 80305; 81001; 87086; 96365; G0463

== ENCOUNTER 2022-07-13 15:55 | Outpatient (CLI) | payer OTHER, SELFPAY ==
[2022-07-13 16:35] VITALS: BMI 38.7
[2022-07-13 16:47] LABS: Microscopic, Urine URINE MICROSCOPIC (MICROSCOPIC)
[2022-07-13 16:52] LABS: Appearance,Urine CLEAR (Clear); Bilirubin,Urine Negative (Negative); Blood, Urine Negative (Negative); Color,Urine YELLOW (Yellow); Glucose,Urine (UA) Negative (Negative); Ketones,Urine 1+ (Negative); Leukocyte Esterase,Urine 3+ (Negative); Nitrate,Urine Negative (Negative); PH,Urine 6.5 (5.0-8.5); Protein,Urine Negative (Negative); Specific Gravity, Urine 1.015 (1.005-1.030); Urobilinogen,Urine 0.2 EU/dl (0.2)
[2022-07-13 17:04] LABS: Barbiturates Screen,Urine Negative ng/ml (<200); Benzodiazepines Screen,Urine Negative ng/ml (<200)
--- NOTE | 2022-07-13 17:04 | EXP.ACUTE.PN ---
Subjective *Date: 07/13/22 *Time: 17:04 Interval history: She is a 26-year-old 4 para 3 at 34 and 4 weeks gestational age. She felt lightheaded last night and had tingling in her arms and face. Her blood pressure at that time was 170/90. She did not come to labor and delivery. Today she woke up with some tingling in her hands. Her blood pressures in the 120/70 range. She has a mild headache. Medical Exam Vital signs and Labs for Last 24 Hours: Intake and Output 07/13/22 07/13/22 07/13/22 03:59 11:59 19:59 Other: Weight 240 lb Patient Weight 07/14/22 11:59 Weight 240 lb I & O for Labs for Last 24 Hours: Intake & Output 07/11/22 07/12/22 07/13/22 07/14/22 11:59 11:59 11:59 11:59 Weight 240 lb Constitutional: Present no acute distress Head: Present atraumatic ENT: Present normal exam Neck: Present normal inspection Respiratory: Present normal respiratory effort Assessment and Plan *Assessment and plan (1) Headache in : Status: Acute Qualifiers: Trimester: third trimester Qualified Code(s): O26.893 - Other specified related conditions, third trimester; R51.9 - Headache, unspecified Category: Medical Code(s): O26.899 - Other specified related conditions, unspecified trimester; R51.9 - Headache, unspecified (2) : Status: Acute Qualifiers: Weeks of gestation: 34 weeks Qualified Code(s): Z3A.34 - 34 weeks gestation of Category: Medical Code(s): Z34.90 - Encounter for supervision of normal , unspecified, unspecified trimester Plan We have given her Tylenol for her headache. It sounds like she may have had a vagal response last night. Today she is doing better. Her blood pressures are normal. We will send her home to rest.
[2022-07-13 17:05] LABS: Amphetamine/Metha Screen,Urine Negative ng/ml (<1000); Cannabinoid Screen,Urine Negative ng/ml (<50)
[2022-07-13 17:06] LABS: Cocaine Screen,Urine Negative ng/ml (<300)
[2022-07-13 17:07] LABS: Methadone Screen,Urine Negative ng/ml (<300); Opiate Screen,Urine Negative ng/ml (<300)
[2022-07-13 17:08] LABS: Phencyclidine Screen,Urine Negative ng/ml (<25)
[2022-07-13 17:25] LABS: Bacteria,Urine Trace /lpf; RBC,Urine Occasional #/hpf (0-3)
[2022-07-13 19:24] VITALS: BP 128/75; PULSE 91; RESP 18; TEMP 37.1; O2SAT 100; BMI 38.5
== END 2022-07-13 20:10 | disposition home or self-care (01) ==
LOC: OBOUT 15:57 → OB 15:59
PROVIDERS: PCP Obstetrics & Gynecology; Visit Provider Nurse Practitioner Obstetrics & Gynecology
DX: O26.893 Other specified pregnancy related conditions, third trimester (principal); R51.9 Headache, unspecified; Z3A.34 34 weeks gestation of pregnancy; N39.0 Urinary tract infection, site not specified
CPT/HCPCS: 59025; 80305; 81001; 87086; 96365; 96367; G0463; J2505

== ENCOUNTER 2022-07-22 17:12 | Outpatient (CLI) | payer OTHER, SELFPAY ==
[2022-07-22 17:23] VITALS: BP 136/73; RESP 18; TEMP 36.5; O2SAT 96; BMI 38.5
[2022-07-22 17:41] VITALS: BP 136/73; RESP 18; TEMP 36.5; O2SAT 96
[2022-07-22 18:21] LABS: Microscopic, Urine URINE MICROSCOPIC (MICROSCOPIC)
[2022-07-22 18:38] LABS: Appearance,Urine CLEAR (Clear); Bilirubin,Urine Negative (Negative); Blood, Urine Negative (Negative); Color,Urine YELLOW (Yellow); Glucose,Urine (UA) Negative (Negative); Ketones,Urine Negative (Negative); Leukocyte Esterase,Urine 2+ (Negative); Nitrate,Urine Negative (Negative); Protein,Urine TRACE (Negative); Specific Gravity, Urine >= 1.030 (1.005-1.030)
[2022-07-22 18:44] LABS: Bacteria,Urine 3+ /lpf
[2022-07-22 19:01] LABS: Amphetamine/Metha Screen,Urine Negative ng/ml (<1000)
[2022-07-22 19:02] LABS: Barbiturates Screen,Urine Negative ng/ml (<200)
[2022-07-22 19:04] LABS: Benzodiazepines Screen,Urine Negative ng/ml (<200); Cannabinoid Screen,Urine Negative ng/ml (<50)
[2022-07-22 19:05] LABS: Cocaine Screen,Urine Negative ng/ml (<300)
[2022-07-22 19:06] LABS: Methadone Screen,Urine Negative ng/ml (<300); Opiate Screen,Urine Negative ng/ml (<300)
[2022-07-22 19:07] LABS: Phencyclidine Screen,Urine Negative ng/ml (<25)
== END 2022-07-22 19:00 | disposition home or self-care (01) ==
LOC: OBOUT 17:12 → OB 17:13
PROVIDERS: PCP Family Medicine; Referring Provider Obstetrics & Gynecology; Visit Provider Obstetrics & Gynecology
DX: O47.03 False labor before 37 completed weeks of gestation, third trimester (principal); Z3A.35 35 weeks gestation of pregnancy
CPT/HCPCS: 59025; 80305; 81001; 87086

== ENCOUNTER 2022-07-24 20:58 | Outpatient (CLI) | payer OTHER, SELFPAY ==
[2022-07-24 21:09] VITALS: BMI 39.1
[2022-07-24 21:31] VITALS: BP 124/85; PULSE 117; RESP 19; TEMP 36.7; O2SAT 100; BMI 39.1
[2022-07-24 21:35] LABS: Microscopic, Urine URINE MICROSCOPIC (MICROSCOPIC)
[2022-07-24 21:52] LABS: Appearance,Urine CLEAR (Clear); Bilirubin,Urine Negative (Negative); Blood, Urine Negative (Negative); Color,Urine YELLOW (Yellow); Glucose,Urine (UA) Negative (Negative); Ketones,Urine 1+ (Negative); Leukocyte Esterase,Urine 2+ (Negative); Nitrate,Urine Negative (Negative); Protein,Urine Negative (Negative); Urobilinogen,Urine 0.2 EU/dl (0.2)
[2022-07-24 21:57] LABS: Fetal Membrane Rupture (Rapid) Negative (Negative)
[2022-07-24 22:03] LABS: Barbiturates Screen,Urine Negative ng/ml (<200)
[2022-07-24 22:04] LABS: Amphetamine/Metha Screen,Urine Negative ng/ml (<1000); Benzodiazepines Screen,Urine Negative ng/ml (<200)
[2022-07-24 22:05] LABS: Cannabinoid Screen,Urine Negative ng/ml (<50); Cocaine Screen,Urine Negative ng/ml (<300)
[2022-07-24 22:06] LABS: Methadone Screen,Urine Negative ng/ml (<300)
[2022-07-24 22:07] LABS: Opiate Screen,Urine Negative ng/ml (<300); Phencyclidine Screen,Urine Negative ng/ml (<25)
[2022-07-24 22:22] LABS: Bacteria,Urine Trace /lpf; Squamous Epithelial Cell,Urine Occasional #/hpf (0-5)
== END 2022-07-24 22:08 | disposition home or self-care (01) ==
LOC: OBOUT 21:00 → OB 21:01
PROVIDERS: PCP Family Medicine; Visit Provider Obstetrics & Gynecology
DX: O47.03 False labor before 37 completed weeks of gestation, third trimester; Z3A.36 36 weeks gestation of pregnancy
CPT/HCPCS: 80305; 81001; 84112; 87086

== ENCOUNTER → 2022-07-25 03:00 | Outpatient (CLI) | payer OTHER, SELFPAY | PROVIDERS: PCP Obstetrics & Gynecology; Visit Provider Obstetrics & Gynecology | DX: Z34.90 Encounter for supervision of normal pregnancy, unspecified, unspecified trimester (principal) | CPT/HCPCS: 86403 ==

== ENCOUNTER 2022-07-27 07:58 | Outpatient (CLI) | payer OTHER, SELFPAY ==
[2022-07-27 08:00] VITALS: BP 122/77; PULSE 113; RESP 18; TEMP 36.8; O2SAT 100; BMI 22.8
[2022-07-27 08:31] VITALS: BMI 22.8
[2022-07-27 08:35] LABS: Microscopic, Urine URINE MICROSCOPIC (MICROSCOPIC)
[2022-07-27 08:39] LABS: Appearance,Urine CLEAR (Clear); Bilirubin,Urine Negative (Negative); Blood, Urine Negative (Negative); Color,Urine YELLOW (Yellow); Glucose,Urine (UA) Negative (Negative); Ketones,Urine Negative (Negative); Leukocyte Esterase,Urine 2+ (Negative); Nitrate,Urine Negative (Negative); Protein,Urine Negative (Negative); Specific Gravity, Urine >= 1.030 (1.005-1.030); Urobilinogen,Urine 0.2 EU/dl (0.2)
[2022-07-27 08:42] LABS: Fetal Membrane Rupture (Rapid) Negative (Negative)
[2022-07-27 08:48] LABS: Bacteria,Urine 1+ /lpf; Squamous Epithelial Cell,Urine Occasional #/hpf (0-5)
[2022-07-27 08:49] LABS: Amphetamine/Metha Screen,Urine Negative ng/ml (<1000); Benzodiazepines Screen,Urine Negative ng/ml (<200)
[2022-07-27 08:50] LABS: Barbiturates Screen,Urine Negative ng/ml (<200)
[2022-07-27 08:51] LABS: Cannabinoid Screen,Urine Negative ng/ml (<50); Cocaine Screen,Urine Negative ng/ml (<300)
[2022-07-27 09:35] LABS: Opiate Screen,Urine Negative ng/ml (<300)
[2022-07-27 09:36] LABS: Methadone Screen,Urine Negative ng/ml (<300); Phencyclidine Screen,Urine Negative ng/ml (<25)
== END 2022-07-27 09:05 | disposition home or self-care (01) ==
LOC: OBOUT 07:59 → OB 07:59
PROVIDERS: PCP Family Medicine; Visit Provider Obstetrics & Gynecology
DX: O36.8130 Decreased fetal movements, third trimester, not applicable or unspecified (principal); Z3A.36 36 weeks gestation of pregnancy
CPT/HCPCS: 59025; 80305; 81001; 84112; 87086; G0463

== ENCOUNTER 2022-07-28 11:40 | Outpatient (CLI) | payer OTHER, SELFPAY ==
[2022-07-28 12:14] VITALS: BP 142/71; PULSE 102; RESP 18; TEMP 36.7; O2SAT 98; BMI 38.9
[2022-07-28 12:43] LABS: Microscopic, Urine URINE MICROSCOPIC (MICROSCOPIC)
[2022-07-28 12:45] LABS: Appearance,Urine SL CLOUDY (Clear); Bilirubin,Urine Negative (Negative); Blood, Urine Negative (Negative); Color,Urine YELLOW (Yellow); Glucose,Urine (UA) Negative (Negative); Ketones,Urine 1+ (Negative); Leukocyte Esterase,Urine 1+ (Negative); Nitrate,Urine Negative (Negative); Protein,Urine Negative (Negative); Urobilinogen,Urine 0.2 EU/dl (0.2)
[2022-07-28 12:53] LABS: Fetal Membrane Rupture (Rapid) Negative (Negative)
[2022-07-28 12:57] LABS: Bacteria,Urine Trace /lpf; Barbiturates Screen,Urine Negative ng/ml (<200); Benzodiazepines Screen,Urine Negative ng/ml (<200); Squamous Epithelial Cell,Urine Occasional #/hpf (0-5)
[2022-07-28 12:58] LABS: Amphetamine/Metha Screen,Urine Negative ng/ml (<1000)
[2022-07-28 12:59] LABS: Cannabinoid Screen,Urine Negative ng/ml (<50); Cocaine Screen,Urine Negative ng/ml (<300)
[2022-07-28 13:00] LABS: Methadone Screen,Urine Negative ng/ml (<300)
[2022-07-28 13:01] LABS: Opiate Screen,Urine Negative ng/ml (<300); Phencyclidine Screen,Urine Negative ng/ml (<25)
== END 2022-07-28 15:45 | disposition home or self-care (01) ==
LOC: OBOUT 11:41 → OB 11:47
PROVIDERS: PCP Family Medicine; Visit Provider Obstetrics & Gynecology
DX: O47.03 False labor before 37 completed weeks of gestation, third trimester (principal); Z3A.36 36 weeks gestation of pregnancy
CPT/HCPCS: 59025; 80305; 81001; 84112; 87086; 96365; G0463

== ENCOUNTER 2022-07-29 17:18 | Outpatient (CLI) | payer OTHER, SELFPAY ==
[2022-07-29 18:38] VITALS: BMI 39.0
[2022-07-29 18:39] VITALS: BMI 38.9
[2022-07-29 20:13] LABS: Microscopic, Urine URINE MICROSCOPIC (MICROSCOPIC)
[2022-07-29 20:19] LABS: Appearance,Urine CLEAR (Clear); Bilirubin,Urine Negative (Negative); Blood, Urine Negative (Negative); Color,Urine YELLOW (Yellow); Glucose,Urine (UA) Negative (Negative); Ketones,Urine 3+ (Negative); Leukocyte Esterase,Urine 1+ (Negative); Nitrate,Urine Negative (Negative); PH,Urine 6.5 (5.0-8.5); Protein,Urine Negative (Negative); Specific Gravity, Urine 1.025 (1.005-1.030)
[2022-07-29 20:30] LABS: Barbiturates Screen,Urine Negative ng/ml (<200); Benzodiazepines Screen,Urine Negative ng/ml (<200)
[2022-07-29 20:31] LABS: Amphetamine/Metha Screen,Urine Negative ng/ml (<1000)
[2022-07-29 20:32] LABS: Cannabinoid Screen,Urine Negative ng/ml (<50)
[2022-07-29 20:33] LABS: Cocaine Screen,Urine Negative ng/ml (<300); Methadone Screen,Urine Negative ng/ml (<300)
[2022-07-29 20:34] LABS: Opiate Screen,Urine Negative ng/ml (<300); Phencyclidine Screen,Urine Negative ng/ml (<25)
[2022-07-29 20:37] LABS: Bacteria,Urine 1+ /lpf; RBC,Urine Occasional #/hpf (0-3)
== END 2022-07-29 21:47 | disposition home or self-care (01) ==
LOC: OBOUT 17:19 → OB 17:20
PROVIDERS: PCP Family Medicine; Visit Provider Obstetrics & Gynecology
DX: O47.03 False labor before 37 completed weeks of gestation, third trimester (principal); Z3A.36 36 weeks gestation of pregnancy
CPT/HCPCS: 59025; 80305; 81001; 87086; 96360

== ENCOUNTER 2022-08-05 21:38 | Observation (INO) | payer OTHER, SELFPAY ==
[2022-08-05 17:19] VITALS: BMI 85.7
[2022-08-05 18:08] LABS: Microscopic, Urine URINE MICROSCOPIC (MICROSCOPIC)
[2022-08-05 18:10] LABS: Appearance,Urine CLEAR (Clear); Bilirubin,Urine Negative (Negative); Blood, Urine Negative (Negative); Color,Urine YELLOW (Yellow); Glucose,Urine (UA) Negative (Negative); Ketones,Urine TRACE (Negative); Leukocyte Esterase,Urine 1+ (Negative); Nitrate,Urine Negative (Negative); Protein,Urine Negative (Negative); Specific Gravity, Urine >= 1.030 (1.005-1.030)
[2022-08-05 18:12] VITALS: BP 131/93; PULSE 111; RESP 18; TEMP 36.4; O2SAT 100
[2022-08-05 18:21] LABS: Amphetamine/Metha Screen,Urine Negative ng/ml (<1000)
[2022-08-05 18:22] LABS: Barbiturates Screen,Urine Negative ng/ml (<200)
[2022-08-05 18:23] LABS: Benzodiazepines Screen,Urine Negative ng/ml (<200); Cannabinoid Screen,Urine Negative ng/ml (<50)
[2022-08-05 18:24] LABS: Cocaine Screen,Urine Negative ng/ml (<300)
[2022-08-05 18:25] LABS: Methadone Screen,Urine Negative ng/ml (<300); Opiate Screen,Urine Negative ng/ml (<300)
[2022-08-05 18:26] LABS: Phencyclidine Screen,Urine Negative ng/ml (<25)
[2022-08-05 18:29] LABS: Bacteria,Urine 1+ /lpf
[2022-08-05 22:47] LABS: Coronavirus 19, PCR Not Detected (NotDetected); Influenza A, PCR Not Detected (NotDetected); Influenza B, PCR Not Detected (NotDetected)
[2022-08-05 22:52] LABS: Basophils # 0.1 K/mm3 (0-0.2); Basophils % 0.8 % (0.1-2.0); Eosinophils # 0.1 K/mm3 (0.0-0.4); Eosinophils % 0.9 % (0.1-12.0); Hematocrit 30.1 % (37.0-47.0); Hemoglobin 10.1 g/dL (12.2-16.2); Lymphocytes # 2.3 K/mm3 (0.7-4.5); Mean Corpuscular HGB Conc 33.6 g/dL (31.8-35.4); Mean Corpuscular Volume 77.5 fl (81-99); Mean Platelet Volume 9.1 fl (7.4-10.4); Monocytes # 0.5 K/mm3 (0.1-1.0); Monocytes % 4.9 % (1.7-9.3); Neutrophils # 6.6 K/mm3 (1.8-7.8); Neutrophils % 69.5 % (37.0-80.0); Platelet Count 259 K/mm3 (142-424); Red Blood Count 3.88 M/mm3 (4.20-5.40); Red Cell Distribution Width 16.6 % (11.5-17.5); White Blood Count 9.5 K/mm3 (4.8-10.8)
--- NOTE | 2022-08-06 08:02 | P.HP_ITS ---
OB - H&P: HPI Antepartum History of Present Illness Chief complaint: Painful contractions History of present illness: Ms Abiola Stokes is a 26 yo at 37w6d who presented to [facility] L&D with complaint of painful contractions and pelvic pressure. Reports good movement. Denies leakage of fluid and vaginal bleeding. History of Present Criteria for establishing EDC:: LMP confirmed by 1st trimester US care: good care Ultrasounds: normal mid trimester US Labs Blood type: A (+) positive Rubella: immune RPR/VDRL: nonreactive GBS status: negative HBsAG: negative PFSH [facility] Disclaimer: The information contained in this section may have been updated after the patient was seen, as this information can be updated by other users. Medical History Low back pain during Maternal obesity affecting , antepartum contractions UTI (urinary tract infection) in in third trimester Surgical History History of cholecystectomy History of tonsillectomy Tympanic tube insertion Family History Other No significant family history Social History Smoking Status: Never smoker alcohol intake: never substance use type: denies use current occupational status: employed Travel in the last 8 weeks: None household members: spouse and children caffeine: Yes Review of Systems Review of Systems Review of systems:: pertinent systems reviewed and negative unless documented below *Gastrointestinal Comments: + contractions *Genitourinary Comments: + pelvic pressure Meds Home Medications and Allergies Home Medications Medication Instructions Recorded Confirmed Type prenat.vits,franca,[id number]-[id number]-kfypw 1 tab PO DAILY Diet supplement 12/27/21 07/31/22 History New Prescriptions to Start Prescriptions: Allergies Allergy/AdvReac Type Severity Reaction Status Date / Time No Known Allergies Allergy Verified 07/31/22 08:59 OB - H&P: Exam Physical Exam Vital signs: Temp Pulse Resp BP Pulse Ox 97.5 F L 111 H 18 131/93 H 100 08/05/22 18:12 08/05/22 18:12 08/05/22 18:12 08/05/22 18:12 08/05/22 18:12 OB - Results Labs Labs: Short CBC 08/05/22 Range/Units 22:36 WBC 9.5 (4.8-10.8) K/mm3 Hgb 10.1 L (12.2-16.2) g/dL Hct 30.1 L (37.0-47.0) % Plt Count 259 (142-424) K/mm3 Urine 08/05/22 Range/Units 16:30 Urine Color Yellow (Yellow) Urine Appearance Clear (Clear) Urine pH 6.0 (5.0-8.5) Ur Specific [place] >= 1.030 (1.005-1.030) Urine Protein Negative (Negative) Urine Glucose (UA) Negative (Negative)
--- NOTE | 2022-08-06 08:17 | EXP.HPDC ---
General Admission date:: 08/05/22 Discharge date: 08/06/22 *Admission Date: 08/05/22 *Chief complaint: painful uterine contractions, pelvic pressure *History of present illness: Ms Abiola Stokes is a 26 yo at 37w6d who presented to [facility] L&D with complaint of painful contractions and pelvic pressure. Reports good movement. No vaginal bleeding or leakage of fluid. [facility] Disclaimer: The information contained in this section may have been updated after the patient was seen, as this information can be updated by other users. Medical History 38 weeks gestation of Low back pain during Maternal obesity affecting , antepartum contractions UTI (urinary tract infection) in in third trimester Surgical History History of cholecystectomy History of tonsillectomy Tympanic tube insertion Family History Other No significant family history Social History Smoking Status: Never smoker alcohol intake: never substance use type: denies use current occupational status: employed Travel in the last 8 weeks: None household members: spouse and children caffeine: Yes Review of Systems Review of Systems Review of systems:: pertinent systems reviewed and negative unless documented below *Gastrointestinal Comments: + contractions *Genitourinary Comments: + pelvic pressure Exam Data for Last 24 hours Vital signs and Labs for Last 24 Hours: Temp Pulse Resp BP Pulse Ox 97.5 F L 111 H 18 131/93 H 100 08/05/22 18:12 08/05/22 18:12 08/05/22 18:12 08/05/22 18:12 08/05/22 18:12 Laboratory Results - last 24 hr 08/05/22 16:30: Urine Color Yellow, Urine Appearance Clear, Urine pH 6.0, Ur Specific [place] >= 1.030, Urine Protein Negative, Urine Glucose (UA) Negative, Urine Ketones Trace, Urine Blood Negative, Urine Nitrate Negative, Urine Bilirubin Negative, Urine Urobilinogen 1.0, Ur Leukocyte Esterase 1+ A, Urine WBC 5-10, Ur Squamous Epith Cells 10-20, Urine Bacteria 1+ 08/05/22 16:30: Urine Opiates Screen Negative, Urine Methadone Screen Negative, Ur Barbituates Screen Negative, Ur Phencyclidine Scrn Negative, Ur Amphetamines Screen Negative, U Benzodiazepines Scrn Negative, Urine Cocaine Screen Negative, U Marijuana (THC) Screen Negative 08/05/22 22:23: SARS-CoV-2 (PCR) Not detected, Influenza A Untype (PCR) Not detected, Influenza Type B (PCR) Not detected 08/05/22 22:36: WBC 9.5, RBC 3.88 L, Hgb 10.1 L, Hct 30.1 L, MCV 77.5 L, MCH 26.0 L, MCHC 33.6, RDW 16.6, Plt Count 259, MPV 9.1, Neut % (Auto) 69.5, Lymph % (Auto) 24.0, [place] % (Auto) 4.9, Eos % (Auto) 0.9, Baso % (Auto) 0.8, Neut # (Auto) 6.6, Lymph # (Auto) 2.3, [place] # (Auto) 0.5, Eos # (Auto) 0.1, Baso # (Auto) 0.1 08/05/22 22:36: Blood Type A Positive, Antibody Screen Negative I & O for Last 24 hours: Intake & Output 08/03/22 08/04/22 08/05/22 08/06/22 23:59 23:59 23:59 23:59 Weight 531 lb 5.024 oz Constitutional Constitutional: no acute distress *Routine HEENT Exam Head: Present normocephalic and atraumatic Eye: Absent conjunctivae pink ENT: Present mucous membranes moist and dentition normal *Routine Neck Exam Neck: Present full ROM *Routine Respiratory Exam Respiratory: Present CTA bilaterally and normal respiratory effort *Routine Cardiovascular Exam Cardiovascular: Present RRR *Routine Abdominal Exam Abdominal: Present soft (Gravid); Absent tenderness *Routine Rectal Exam Rectal:: deferred *Routine Genitalia Exam Genitalia:: deferred *Routine Extremities Exam Extremities: Present full ROM; Absent edema or calf tenderness *Routine Neurological Exam Neurological: Present alert, oriented X3 and moving all extremities Routine Psychiatric Exam Psychiatric: Present normal
== END 2022-08-06 08:56 | disposition home or self-care (01) ==
LOC: OBOUT 21:38 → OB 21:38
PROVIDERS: Admitting Provider Obstetrics & Gynecology; PCP Family Medicine; Referring Provider Obstetrics & Gynecology; Visit Provider Obstetrics & Gynecology
DX: O60.03 Preterm labor without delivery, third trimester (principal); O23.43 Unspecified infection of urinary tract in pregnancy, third trimester; Z3A.37 37 weeks gestation of pregnancy
CPT/HCPCS: 36415; 59025; 80305; 81001; 85025; 86850; 87086; 87088; 87186; C9803; G0378; U0003; U0005

== ENCOUNTER 2022-08-09 04:45 | Inpatient (IN) | payer OTHER, SELFPAY ==
[2022-08-09 04:52] VITALS: BP 117/73; PULSE 78; RESP 18; TEMP 36.7; O2SAT 98; BMI 85.3
[2022-08-09 05:03] VITALS: BMI 47.2
[2022-08-09 05:54] LABS: Fetal Membrane Rupture (Rapid) Positive (Negative)
[2022-08-09 07:06] LABS: Microscopic, Urine URINE MICROSCOPIC (MICROSCOPIC)
[2022-08-09 07:14] LABS: Appearance,Urine CLEAR (Clear); Bilirubin,Urine Negative (Negative); Blood, Urine Negative (Negative); Color,Urine YELLOW (Yellow); Glucose,Urine (UA) Negative (Negative); Ketones,Urine Negative (Negative); Leukocyte Esterase,Urine Negative (Negative); Nitrate,Urine Negative (Negative); PH,Urine 6.5 (5.0-8.5); Protein,Urine Negative (Negative); Specific Gravity, Urine 1.025 (1.005-1.030); Urobilinogen,Urine 0.2 EU/dl (0.2)
[2022-08-09 07:16] LABS: Basophils # 0.1 K/mm3 (0-0.2); Basophils % 0.8 % (0.1-2.0); Eosinophils # 0.1 K/mm3 (0.0-0.4); Eosinophils % 0.8 % (0.1-12.0); Hematocrit 33.3 % (37.0-47.0); Lymphocytes # 2.6 K/mm3 (0.7-4.5); Lymphocytes % 19.1 % (10-50); Mean Corpuscular HGB Conc 33.1 g/dL (31.8-35.4); Mean Corpuscular Hemoglobin 26.5 pg (27.0-31.2); Mean Corpuscular Volume 80.1 fl (81-99); Mean Platelet Volume 8.9 fl (7.4-10.4); Monocytes # 0.7 K/mm3 (0.1-1.0); Monocytes % 5.4 % (1.7-9.3); Neutrophils % 73.9 % (37.0-80.0); Platelet Count 280 K/mm3 (142-424); Red Blood Count 4.16 M/mm3 (4.20-5.40); Red Cell Distribution Width 16.6 % (11.5-17.5); White Blood Count 13.5 K/mm3 (4.8-10.8)
[2022-08-09 07:31] LABS: Bacteria,Urine Trace /lpf; Barbiturates Screen,Urine Negative ng/ml (<200); Benzodiazepines Screen,Urine Negative ng/ml (<200); RBC,Urine Occasional #/hpf (0-3); Squamous Epithelial Cell,Urine Occasional #/hpf (0-5)
[2022-08-09 07:32] LABS: Amphetamine/Metha Screen,Urine Negative ng/ml (<1000)
[2022-08-09 07:33] LABS: Cannabinoid Screen,Urine Negative ng/ml (<50); Cocaine Screen,Urine Negative ng/ml (<300)
[2022-08-09 07:34] LABS: Methadone Screen,Urine Negative ng/ml (<300)
[2022-08-09 07:35] LABS: Opiate Screen,Urine Negative ng/ml (<300); Phencyclidine Screen,Urine Negative ng/ml (<25)
[2022-08-09 09:01] LABS: Coronavirus 19, PCR Not Detected (NotDetected); Influenza A, PCR Not Detected (NotDetected); Influenza B, PCR Not Detected (NotDetected)
--- NOTE | 2022-08-09 09:58 | EXP.OB.APHP ---
OB - H&P: HPI Antepartum History of Present Illness Chief complaint: Leakage of fluid, contractions, pelvic pressure History of present illness: Mrs Abiola Stokes is a 26 yo at 38w3d, by History of Present Criteria for establishing EDC:: based on 1st trimester US only care: good care Ultrasounds: normal mid trimester US Obstetrical complications: none Labs Blood type: A (+) positive Rubella: immune RPR/VDRL: nonreactive GBS status: negative HBsAG: negative PFSH PFSH Disclaimer: The information contained in this section may have been updated after the patient was seen, as this information can be updated by other users. Medical History (Updated 08/09/22 @ 10:07 by Sunshine Ragland DO) 38 weeks gestation of Low back pain during Maternal obesity affecting , antepartum contractions Spontaneous rupture of amniotic membranes UTI (urinary tract infection) in in third trimester Surgical History History of cholecystectomy History of tonsillectomy Tympanic tube insertion Family History Other No significant family history Social History Smoking Status: Never smoker alcohol intake: never substance use type: denies use current occupational status: employed Travel in the last 8 weeks: None household members: spouse and children caffeine: Yes Review of Systems Review of Systems Review of systems:: pertinent systems reviewed and negative unless documented below Meds Home Medications and Allergies Home Medications Medication Instructions Recorded Confirmed Type prenat.vits,franca,ynp-vjqf-mhhqw 1 tab PO DAILY Diet supplement 12/27/21 08/07/22 History New Prescriptions to Start Prescriptions: Allergies Allergy/AdvReac Type Severity Reaction Status Date / Time No Known Allergies Allergy Verified 08/07/22 09:53 OB - H&P: Exam Physical Exam Vital signs: Temp Pulse Resp BP Pulse Ox 98.1 F 78 18 117/73 98 08/09/22 04:52 08/09/22 04:52 08/09/22 04:52 08/09/22 04:52 08/09/22 04:52 Constitutional no acute distress Routine HEENT Exam Head: Present normocephalic Eye: Absent conjunctivae pink ENT: Present mucous membranes moist and dentition normal Routine Neck Exam Present full ROM Routine Respiratory Exam Present CTA bilaterally and normal respiratory effort Routine Cardiovascular Exam Present RRR Routine Abdominal Exam Present soft (gravid); Absent tenderness Routine Rectal Exam Patient deferred: visual exam Routine Exam Patient deferred: external exam Routine Extremities Exam Present full ROM; Absent edema or calf tenderness Routine Neurological Exam Present alert, oriented X3 and moving all extremities Routine Psychiatric Exam Present normal affect and cooperative Detailed Labor and Delivery Exam Dilation (cm): 4 Effacement (%): 70 Cervix position: mid station: -2 Consistency: soft Membranes: ruptured Amniotic fluid: clear Baseline heart rate: 140 monitor accelerations: Absent monitor decelerations: Variable buttermaker continuous churn variability: Moderate (11-25) Contraction frequency (min): 3 Tachysystole: No OB - Results Labs Labs: Short CBC 08/09/22 Range/Units 06:30 WBC 13.5 H (4.8-10.8) K/mm3 Hgb 11.0 L (12.2-16.2) g/dL Hct 33.3 L (37.0-47.0) % Plt Count 280 (142-424) K/mm3 Urine 08/09/22 Range/Units 06:00 Urine Color Yellow (Yellow) Urine Appearance Clear (Clear) Urine pH 6.5 (5.0-8.5) Ur Specific [place] 1.025 (1.005-1.030) Urine Protein Negative (Negative) Urine Glucose (UA) Negative (Negative) OB - A/P Antepartum (1) 38 weeks gestation of : Status: Acute (2) Spontaneous rupture of amniotic membranes: Status
--- NOTE | 2022-08-09 12:01 | EXP.DN ---
Delivery Note Delivery Date:: 08/09/22 Delivery Time:: 11:51 Anesthesia Type: Epidural Was labor medically induced?: No Gestational age (weeks): 38 Infant delivered prior to 39 weeks?: Yes Justification for early elective delivery:: Premature ROM Gender: Male at 1 minute: 8 at 5 minutes: 9 Delivery Procedure:: Mom complete with epidural. Pushed for approximately 9 minutes. Head delivered spontaneously over intact perineum in VIJI position. Nuchall cord x 1 not compressive but not able to be reduced. Cord clamped and cut at perineum. Anterior shoulder delivered with gentle downward pressure. Posterior shoulder and remainder of body delivered spontaneously. Baby placed on maternal abdomen, mouth and nares bulb suctioned, warmed/dried and stimulated. Cord was clamped and cut by father of baby. Cord blood was obtained. Placenta delivered spontaneously and intact. Placenta will be sent to pathology for review. No lacerations. Mom and baby were skin to skin and doing well after delivery. Live male baby (baby's name is Ofe) APGARs 8, 9 EBL 50 mL Placental Delivery Description: Spontaneous
--- NOTE | 2022-08-09 15:25 | P.PN_ITS ---
[facility] Disclaimer: The information contained in this section may have been updated after the patient was seen, as this information can be updated by other users. Medical History (Updated 08/09/22 @ 10:07 by Sunshine Ragland DO) 38 weeks gestation of Low back pain during Maternal obesity affecting , antepartum contractions Spontaneous rupture of amniotic membranes UTI (urinary tract infection) in in third trimester Surgical History History of cholecystectomy History of tonsillectomy Tympanic tube insertion Family History Other No significant family history Social History Smoking Status: Never smoker alcohol intake: never substance use type: denies use current occupational status: employed Travel in the last 8 weeks: None household members: spouse and children caffeine: Yes [facility] Anesthesia Checklist Patient Identification Patient Identification: Arm Band and Family Structural Data Admitted From: Direct Admit Planned Operative Procedure/s: Labor and delivery Consent for Planned Operative Procedure(s) Verified: Yes Verified Documents: Surgical Consent and History and Physical NPO Status Verified Time NPO: 00:00 Additional verifications Patient : Yes Anesthesia Reactions: No Hx Blood Transfusions: No Blood Transfusion Reaction: No Cephalosporin Allergy: No Previous Colonoscopy: No Airway Assessment C-Spine Mobility Assessed: Yes TMJ Mobility Assessed: Yes Dentition: Good Dentition Neurological Assessment Level of Consciousness: Awake, Appropriate and Follows Commands Hx Seizures: No Numbness or tingling in extremities: No Anesthesia Plan Anesthesia Risk discussed: Yes ASA Class: I Anesthesia Type: Epidural
--- NOTE | 2022-08-09 15:28 | EXP.ANES.CKL ---
[facility] Disclaimer: The information contained in this section may have been updated after the patient was seen, as this information can be updated by other users. Medical History (Updated 08/09/22 @ 10:07 by Sunshine Ragland DO) 38 weeks gestation of Low back pain during Maternal obesity affecting , antepartum contractions Spontaneous rupture of amniotic membranes UTI (urinary tract infection) in in third trimester Surgical History History of cholecystectomy History of tonsillectomy Tympanic tube insertion Family History Other No significant family history Social History Smoking Status: Never smoker alcohol intake: never substance use type: denies use current occupational status: employed Travel in the last 8 weeks: None household members: spouse and children caffeine: Yes [facility] Anesthesia Checklist Patient Identification Patient Identification: Arm Band and Family Structural Data Admitted From: Direct Admit Planned Operative Procedure/s: Term gestation for labor and delivery Consent for Planned Operative Procedure(s) Verified: Yes NPO Status Verified Time NPO: 00:00 Additional verifications Anesthesia Reactions: No Hx Blood Transfusions: No Blood Transfusion Reaction: No Cephalosporin Allergy: No Previous Colonoscopy: No Airway Assessment C-Spine Mobility Assessed: Yes TMJ Mobility Assessed: Yes Dentition: Good Dentition Neurological Assessment Level of Consciousness: Awake, Alert, Appropriate and Follows Commands Hx Seizures: No Numbness or tingling in extremities: No Anesthesia Plan Anesthesia Risk discussed: Yes Anesthesia Plan: N/A ASA Class: I Anesthesia Type: Epidural
[2022-08-09 15:56] VITALS: BP 131/93; PULSE 102; RESP 17; TEMP 36.4
[2022-08-09 21:00] VITALS: BP 98/68; PULSE 84; RESP 18; TEMP 36.8; O2SAT 98
[2022-08-10 01:08] VITALS: BP 123/69; PULSE 72; RESP 18; TEMP 36.7; O2SAT 98
[2022-08-10 04:45] VITALS: BP 122/64; PULSE 73; RESP 18; TEMP 36.5; O2SAT 97
[2022-08-10 07:46] VITALS: BP 122/76; PULSE 72; RESP 18; TEMP 36.3; O2SAT 95
[2022-08-10 10:48] LABS: Basophils # 0.1 K/mm3 (0-0.2); Basophils % 0.6 % (0.1-2.0); Eosinophils # 0.2 K/mm3 (0.0-0.4); Eosinophils % 1.6 % (0.1-12.0); Hematocrit 32.5 % (37.0-47.0); Lymphocytes # 2.3 K/mm3 (0.7-4.5); Lymphocytes % 18.6 % (10-50); Mean Corpuscular HGB Conc 33.9 g/dL (31.8-35.4); Mean Corpuscular Hemoglobin 26.1 pg (27.0-31.2); Mean Corpuscular Volume 76.9 fl (81-99); Mean Platelet Volume 8.7 fl (7.4-10.4); Monocytes # 0.6 K/mm3 (0.1-1.0); Monocytes % 4.6 % (1.7-9.3); Neutrophils # 9.2 K/mm3 (1.8-7.8); Neutrophils % 74.7 % (37.0-80.0); Platelet Count 267 K/mm3 (142-424); Red Blood Count 4.23 M/mm3 (4.20-5.40); Red Cell Distribution Width 16.5 % (11.5-17.5); White Blood Count 12.3 K/mm3 (4.8-10.8)
--- NOTE | 2022-08-10 12:39 | EXP.DC.SUM ---
General Admission date:: 08/09/22 Discharge date: 08/10/22 HPI HPI HPI: PPD # 1 s/p Feeling well. Pain controlled. She is breast feeding. Light lochia. Voiding without difficulty and passing flatus. Tolerating regular diet. Denies fever/chills, chest pain and shortness of breath. No headaches or vision changes. No swelling. Hospital Course Hospital Course Hospital Course: Ms Abiola Stokes is a 26 yo at 38w3d admitted to [facility] L&D for spontaneous rupture of membranes on 08/09/22. Labor was augmented with Pitocin. She had a normal spontaneous vaginal delivery on 08/09/22. She delivered a live male baby (baby's name is Ofe) weighing 7 lb 15 oz. 8, 9. AGPARs 8, 9. EBL 50 mL. PPD # 1 She was doing well. Pain controlled. Breast feeding. Light lochia. Voiding without difficulty. Passing flatus. Tolerating regular diet. Vital signs stable, afebrile. Heart was regular rate and rhythm. Lungs clear to auscultation. Abdomen soft, nontender. Trace bilateral lower extremity swelling. No calf tenderness to palpation. Normal hospital course. Patient was discharged to home. 08/09/22: Hgb 11.0, Hct 33.3 08/09/22: Hgb 11.0, Hct 32.5 Exam Data for Last 24 hours Vital signs and Labs for Last 24 Hours: Temp Pulse Resp BP Pulse Ox 97.4 F L 72 18 122/76 95 08/10/22 07:46 08/10/22 07:46 08/10/22 07:46 08/10/22 07:46 08/10/22 07:46 Laboratory Results - last 24 hr 08/10/22 10:30: WBC 12.3 H, RBC 4.23, Hgb 11.0 L, Hct 32.5 L, MCV 76.9 L, MCH 26.1 L, MCHC 33.9, RDW 16.5, Plt Count 267, MPV 8.7, Neut % (Auto) 74.7, Lymph % (Auto) 18.6, [place] % (Auto) 4.6, Eos % (Auto) 1.6, Baso % (Auto) 0.6, Neut # (Auto) 9.2 H, Lymph # (Auto) 2.3, [place] # (Auto) 0.6, Eos # (Auto) 0.2, Baso # (Auto) 0.1 I & O for Last 24 hours: Intake & Output 08/07/22 08/08/22 08/09/22 08/10/22 23:59 23:59 23:59 23:59 Weight 242 lb Constitutional Constitutional: no acute distress *Routine HEENT Exam Head: Present normocephalic and atraumatic Eye: Absent conjunctivae pink ENT: Present mucous membranes moist and dentition normal *Routine Neck Exam Neck: Present full ROM *Routine Respiratory Exam Respiratory: Present CTA bilaterally and normal respiratory effort *Routine Cardiovascular Exam Cardiovascular: Present RRR *Routine Abdominal Exam Abdominal: Present soft and normoactive bowel sounds; Absent tenderness Comments: Uterine fundus firm and below umbilicus *Routine Rectal Exam Patient deferred: visual exam *Routine Exam Patient deferred: external exam *Routine Extremities Exam Extremities: Present full ROM *Routine Neurological Exam Neurological: Present alert, oriented X3 and moving all extremities Routine Psychiatric Exam Psychiatric: Present normal affect and cooperative Results Data Completed and Pending Labs on day of discharge: Labs from last 24 hours 08/10/22 10:30 WBC 12.3 H RBC 4.23 Hgb 11.0 L Hct 32.5 L MCV 76.9 L MCH 26.1 L MCHC 33.9 RDW 16.5 Plt Count 267 MPV 8.7 Neut % (Auto) 74.7 Lymph % (Auto) 18.6 [place] % (Auto) 4.6 Eos % (Auto) 1.6 Baso % (Auto) 0.6 Neut # (Auto) 9.2 H Lymph # (Auto) 2.3 [place] # (Auto) 0.6 Eos # (Auto) 0.2 Baso # (Auto) 0.1 DS: Diagnosis Discharge Diagnosis (1) 38 weeks gestation of : Status: Acute (2) Spontaneous rupture of amniotic membranes: Status: Acute (3) Maternal obesity affecting , antepartum: Status: Acute Meds Home Medications and Allergies Home Medications Medication Instructions Recorded Confirmed Type prenat.vits,franca,lxo-atmi-vbplz 1 tab PO DAILY Diet supplement 12/27/21 08/10/22 History New Prescriptions to Start Prescriptions: Allergies Allergy/AdvReac Type Severity Reaction Status Date / Time No Known Allergies Allergy Verified 08/07/22 09:53 Discharge Plan Disposition Patient Disposition: Home, Self-Care Condition: Good Discharge Order Discharge Order
== END 2022-08-10 18:30 | disposition home or self-care (01) | DRG 807 ==
LOC: OB 04:45 → OBOUT 12:17 → OB 12:17
PROVIDERS: Obstetrics & Gynecology; Admitting Provider Nurse Practitioner Obstetrics & Gynecology; PCP Family Medicine; Visit Provider Nurse Practitioner Obstetrics & Gynecology
DX: O69.81X0 Labor and delivery complicated by cord around neck, without compression, not applicable or unspecified (principal); Z37.0 Single live birth; Z3A.38 38 weeks gestation of pregnancy
CPT/HCPCS: 59409; 36415; 59025; 80305; 81001; 84112; 85025; 86850; 94761; C1758; C9803; G0283; J0595; U0003; U0005

== ENCOUNTER 2022-10-27 17:45 | Emergency (ER) | payer OTHER, SELFPAY ==
[2022-10-27 18:05] VITALS: BP 126/88; PULSE 83; RESP 18; TEMP 36.6; O2SAT 96; BMI 35.5
--- NOTE | 2022-10-27 18:21 | EXP.UTC ---
Discharge Plan Disposition Patient Disposition: Home, Self-Care Condition: Good Prescriptions Prescriptions: New amoxicillin [amoxicillin] 500 mg tablet 500 mg PO BID 10 Days Qty: 20 0RF Referrals Follow up/Referrals: Provider,Referral, MD [Primary Care Provider] - See instructions Activity Restrictions/Add. Instructions Additional Instructions/Restrictions: Start antibiotics today be sure to take it as ordered with the full length of time although you should start feeling better in 24-48 hours. Change toothbrush and toothpaste 24-48 hours after starting antibiotics Tylenol or Motrin as needed for fever or pain Encourage fluids, water, Gatorade, Powerade, try cold fluids, popsicles, ice cream will make it feel better You are contagious for 24 hours. Avoid kissing anyone, no eating or drinking after anyone. You are contagious. Follow-up the ER for new or worsening symptoms or no noticeable improvement over the next 24-48 hours. Follow-up with PCP this week. Clinical Impressions Clinical Impression: Strep sore throat Instructions Patient Instructions: DI for Strep Throat Discharge ED Provider: [place] ([facility])Sallie [facility] [place] HPI General Stated complaint: exposed to strep sore throat headache Mode of Arrival: Ambulatory Source of Information: Patient Limitations: No Limitations Time Seen by Provider: 10/27/22 18:21 Description of Symptoms (Recalled from Triage Doc. by RN): PATIENT C/O SORE THROAT, HEADACHE AND RUNNY NOSE. RECENTLY EXPOSED TO STREP HEENT Symptoms (Recalled from RN notes): Yes Resp Symptoms (Recalled from RN notes): No Skin Symptoms (Recalled from RN notes): No MS Symptoms (Recalled from RN notes): No Functional Status (Recalled from RN notes): WNL History of Present Illness Provider Complaint: 26 yr old female presents for sore throat ,runny nose and soto. child has strep Related Data Previous Rx's Medication Instructions Recorded amoxicillin 500 mg tablet 500 mg PO BID 10 days #20 tabs 10/27/22 Allergies Allergy/AdvReac Type Severity Reaction Status Date / Time No Known Allergies Allergy Verified 09/19/22 14:36 Worker's Comp Is this a Worker's Comp case?: No [facility] Disclaimer: The information contained in this section may have been updated after the patient was seen, as this information can be updated by other users. Medical History , RN TELEPHONIC) 38 weeks gestation of Low back pain during Maternal obesity affecting , antepartum contractions Spontaneous rupture of amniotic membranes UTI (urinary tract infection) in in third trimester Surgical History , RN TELEPHONIC) History of cholecystectomy History of tonsillectomy Tympanic tube insertion Family History , RN TELEPHONIC) No significant family history Social History , RN TELEPHONIC) Smoking Status: Never smoker alcohol intake: never substance use type: denies use current occupational status: employed Travel in the last 8 weeks: None household members: spouse and children caffeine: Yes ROS Obtained: Yes All systems reviewed & no additional complaints except as documented Constitutional Constitutional: Reports system reviewed and no additional complaints, except as documented, Reports as per HPI and Reports headache(s) Eyes Eyes: Reports system reviewed and no additional complaints, except as documented and Reports as per HPI ENT Ears, Nose, Mouth, and Throat: Reports system reviewed and no additional complaints, except as documented, Reports as per HPI, Reports headache(s), Reports nasal congestion and Reports sore throat Cardiovascular Cardiovascular: Reports system reviewed and no additional complaints, except as documented Respiratory Respiratory: Reports system reviewed and no
[2022-10-27 18:23] VITALS: BP 126/88; PULSE 83; RESP 18; TEMP 36.6; O2SAT 96
[2022-10-27 18:23] LABS: UTC Strep Screen (Rapid) Negative (Negative)
== END 2022-10-27 18:25 | disposition home or self-care (01) ==
PROVIDERS: Emergency Provider Nurse Practitioner Family
DX: J02.0 Streptococcal pharyngitis (principal); R51.9 Headache, unspecified
CPT/HCPCS: 87880; 99212; 99214; G0463

== ENCOUNTER 2022-12-19 14:07 | Emergency (ER) | payer OTHER, SELFPAY ==
[2022-12-19 14:17] VITALS: BP 121/82; PULSE 85; RESP 20; TEMP 36.8; O2SAT 96; BMI 35.5
--- NOTE | 2022-12-19 14:34 | EXP.UTC ---
Discharge Plan Disposition Patient Disposition: Home, Self-Care Condition: Good Prescriptions Prescriptions: New azithromycin [Zithromax] 250 mg tablet 250 mg PO UD DOSE PK Qty: 6 0RF Rx Instructions: Take two (2) tablets today, then one (1) tablet days #2 thru #5 Discontinued amoxicillin [amoxicillin] 500 mg tablet 500 mg PO BID 10 Days Qty: 20 0RF Referrals Follow up/Referrals: Provider,Referral, MD [Primary Care Provider] - See instructions Activity Restrictions/Add. Instructions Additional Instructions/Restrictions: Drink plenty of fluids. Take tylenol or ibuprofen for pain or fever. Take the medications as directed. Follow up with your regular doctor. GO TO THE ER FOR ANY WORSENING SYMPTOMS Clinical Impressions Clinical Impression: Pharyngitis, Sinusitis Stand Alone Forms Stand Alone Forms: Work/School Release Instructions Patient Instructions: DI for Sinusitis Discharge ED Provider: Devon Fernández [facility] [place] HPI General Stated complaint: sore throat, runny nose, cough, body aches Mode of Arrival: Ambulatory Source of Information: Patient Limitations: No Limitations Time Seen by Provider: 12/19/22 14:25 HEENT Symptoms (Recalled from RN notes): Yes Resp Symptoms (Recalled from RN notes): Yes Skin Symptoms (Recalled from RN notes): No MS Symptoms (Recalled from RN notes): No Functional Status (Recalled from RN notes): wnl History of Present Illness Provider Complaint: pt c/o a sore throat, nasal drainage, myalgia, SOA, and a productive cough with green sputum. Related Data Previous Rx's Medication Instructions Recorded azithromycin 250 mg tablet 250 mg PO UD DOSE PK #6 tabs 12/19/22 (Zithromax) Allergies Allergy/AdvReac Type Severity Reaction Status Date / Time No Known Allergies Allergy Verified 12/19/22 14:19 Worker's Comp Is this a Worker's Comp case?: No [facility] Disclaimer: The information contained in this section may have been updated after the patient was seen, as this information can be updated by other users. Medical History 38 weeks gestation of Low back pain during Maternal obesity affecting , antepartum contractions Spontaneous rupture of amniotic membranes UTI (urinary tract infection) in in third trimester Surgical History History of cholecystectomy History of tonsillectomy Tympanic tube insertion Family History Other No significant family history Social History Smoking Status: Never smoker alcohol intake: never substance use type: denies use current occupational status: employed Travel in the last 8 weeks: None household members: spouse and children caffeine: Yes ROS Obtained: Yes All systems reviewed & no additional complaints except as documented Constitutional Constitutional: Reports poor appetite Eyes Eyes: Reports system reviewed and no additional complaints, except as documented ENT Ears, Nose, Mouth, and Throat: Reports as per HPI Cardiovascular Cardiovascular: Reports system reviewed and no additional complaints, except as documented and Denies chest pain Respiratory Respiratory: Denies shortness of breath, Reports chest congestion, Reports cough, Denies stridor and Denies wheezing Gastrointestinal Gastrointestingal: Reports system reviewed and no additional complaints, except as documented; Denies abdominal pain, diarrhea or vomiting Musculoskeletal Musculoskeletal: Reports system reviewed and no additional complaints, except as documented and Denies arthralgias Integumentary/Breasts Skin/Breast: Reports system reviewed and no additional complaints, except as documented and Denies rash Neurologic Neurologic: Denies paresthesias Allergic/Immunologic
[2022-12-19 14:36] LABS: UTC Strep Screen (Rapid) Negative (Negative)
[2022-12-19 14:46] LABS: Coronavirus 19, PCR Not Detected (NotDetected); Influenza A, PCR Not Detected (NotDetected); Influenza B, PCR Not Detected (NotDetected)
[2022-12-19 16:25] VITALS: BP 121/82; PULSE 85; RESP 20; TEMP 36.8
== END 2022-12-19 16:33 | disposition home or self-care (01) ==
PROVIDERS: Emergency Provider Nurse Practitioner Family
DX: J01.90 Acute sinusitis, unspecified (principal); J02.9 Acute pharyngitis, unspecified; R05.9 Cough, unspecified
CPT/HCPCS: 87880; 99212; 99214; C9803; G0463; U0003; U0005

== ENCOUNTER 2023-06-03 15:38 | Emergency (ER) | payer OTHER, SELFPAY ==
[2023-06-03 15:39] VITALS: BP 124/66; PULSE 88; RESP 20; TEMP 37.1; O2SAT 97; BMI 35.5
--- NOTE | 2023-06-03 15:57 | HMH.EDGENADL ---
Discharge Plan Disposition Patient Disposition: Home, Self-Care Chief Complaint: Headache Prescriptions Prescriptions: No Action azithromycin [Zithromax] 250 mg tablet 250 mg PO UD DOSE PK Qty: 6 0RF Rx Instructions: Take two (2) tablets today, then one (1) tablet days #2 thru #5 Referrals Follow up/Referrals: Provider,Referral, MD [Primary Care Provider] - See instructions Activity Restrictions/Add. Instructions Additional Instructions/Restrictions: Call your family doctor to establish care for this visit to the emergency department and schedule follow-up within 48 hours to ensure improvement. If you have any worsening of your condition or any other concerning signs or symptoms, return to the emergency department or your primary care doctor for further evaluation. Dr. López's information here, you can follow-up with family medicine. Take Tylenol 1000 mg every 6 hours (4 times daily) and ibuprofen 400 mg every 6 hours (4 times daily) as needed with food and water to prevent GI upset and kidney damage. Clinical Impressions Clinical Impression: Headache Qualifiers: Headache type: unspecified Headache chronicity pattern: acute headache Intractability: intractable Qualified Code(s): R51.9 - Headache, unspecified Discharge ED Provider: Rell Ortega General Adult HPI General Chief complaint: Headache Stated complaint: BAI Time Seen by Provider: 06/03/23 15:42 Mode of Arrival: Ambulatory Source of Information: Patient Limitations: No Limitations Description of Symptoms (Recalled from ER Triage Doc. by RN): pt came in with a generalized headache that radiates down into the back that is pressure in nature. it started last night and light and noise make it worse and patient has complaints of nausea. History of Present Illness HPI narrative: 27-year-old female no relevant medical history other than intermittent headaches in the past presenting with headache. Patient states that started this morning right after she woke up. Has been persistent since that time, not getting better or worse. Currently moderate to severe in intensity, radiates from the front of her head down her neck, associated with photophobia. No nausea, vomiting, stiffness or difficulty or pain with range of motion of neck, blurry vision, double vision, fevers or chills, or any other concerns. Took Tylenol earlier this morning, ibuprofen just prior to arrival. Related Data Previous Rx's Medication Instructions Recorded azithromycin 250 mg tablet 250 mg PO UD DOSE PK #6 tabs 12/19/22 (Zithromax) Allergies Allergy/AdvReac Type Severity Reaction Status Date / Time No Known Allergies Allergy Verified 12/19/22 14:19 [facility] Disclaimer: The information contained in this section may have been updated after the patient was seen, as this information can be updated by other users. Medical History 38 weeks gestation of Low back pain during Maternal obesity affecting , antepartum contractions Spontaneous rupture of amniotic membranes UTI (urinary tract infection) in in third trimester Surgical History History of cholecystectomy History of tonsillectomy Tympanic tube insertion Family History Other No significant family history Social History Smoking Status: Never smoker alcohol intake: never substance use type: denies use current occupational status: employed Travel in the last 8 weeks: None household members: spouse and children caffeine: Yes ROS Obtained: Yes All systems reviewed & no additional complaints except as documented Physical Exam General General appearance: alert and in no apparent distress Head Head exam: atraumatic and normocephalic Eye Eye ex
[2023-06-03 16:16] LABS: Basophils % 0.5 % (0.1-2.0); Eosinophils # 0.1 K/mm3 (0.0-0.4); Eosinophils % 1.7 % (0.1-12.0); Hematocrit 39.1 % (37.0-47.0); Hemoglobin 13.3 g/dL (12.2-16.2); Lymphocytes # 1.4 K/mm3 (0.7-4.5); Lymphocytes % 19.7 % (10-50); Mean Corpuscular HGB Conc 33.9 g/dL (31.8-35.4); Mean Corpuscular Volume 82.6 fl (81-99); Mean Platelet Volume 7.9 fl (7.4-10.4); Monocytes # 0.3 K/mm3 (0.1-1.0); Monocytes % 4.1 % (1.7-9.3); Neutrophils # 5.4 K/mm3 (1.8-7.8); Neutrophils % 74.1 % (37.0-80.0); Platelet Count 268 K/mm3 (142-424); Red Blood Count 4.74 M/mm3 (4.20-5.40); Red Cell Distribution Width 14.3 % (11.5-17.5); White Blood Count 7.3 K/mm3 (4.8-10.8)
[2023-06-03 16:29] LABS: Chloride 108 mmol/L (98-107); Potassium 4.7 mmoL/L (3.5-5.1); Sodium 136 mmol/L (136-145)
[2023-06-03 16:31] LABS: Blood Urea Nitrogen 6 mg/dl (7-17); Creatinine Clearance Estimated 333 mL/min (50-200); Estimated Glomerular Filt Rate 191 ml/min (>60); GFR (African American) 232 ML/MIN (>60)
[2023-06-03 16:32] LABS: Alanine Aminotransferase 77 U/L (12-78); Albumin Level 4.5 g/dl (3.5-5.0); Albumin/Globulin Ratio 1.3 (1.1-1.8); Alkaline Phosphatase 72 U/L (38-126); Anion Gap 10.7 mEq/L (5-15); Aspartate Amino Transferase 83 U/L (14-36); Calcium 8.3 mg/dl (8.4-10.2); Carbon Dioxide 22 mmol/L (22.0-30.0); Globulin 3.5 g/dL (1.3-3.2); Glucose 101 mg/dl (74-100)
[2023-06-03 16:46] VITALS: BP 93/44; PULSE 69; O2SAT 97
[2023-06-03 16:51] LABS: HCG,Quantitative < 2 mIU/ml (0-5.42)
[2023-06-03 17:00] LABS: Magnesium 2.1 mg/dl (1.6-2.3)
[2023-06-03 17:01] VITALS: BP 103/67; PULSE 97; O2SAT 98
[2023-06-03 17:33] VITALS: BP 110/77; PULSE 64; RESP 20; TEMP 37.1; O2SAT 98
== END 2023-06-03 17:34 | disposition home or self-care (01) ==
PROVIDERS: Emergency Provider Emergency Medicine
DX: R51.9 Headache, unspecified (principal)
CPT/HCPCS: 80053; 83735; 84702; 85025; 96361; 96374; 96375; 99284; J0131

== ENCOUNTER 2023-10-20 09:57 | Emergency (ER) | payer OTHER, SELFPAY ==
[2023-10-20 10:45] VITALS: BP 119/84; PULSE 104; RESP 20; TEMP 36.8; O2SAT 100; BMI 38.0
[2023-10-20 11:01] LABS: UTC Strep Screen (Rapid) Positive (Negative)
[2023-10-20 11:02] VITALS: BP 119/84; PULSE 104; RESP 20; TEMP 36.8; O2SAT 100
--- NOTE | 2023-10-20 11:06 | ED_ITS ---
Discharge Plan Disposition Patient Disposition: Home, Self-Care Condition: Good Prescriptions Prescriptions: New amoxicillin 875 mg tablet 875 mg PO Q12H Qty: 20 0RF No Action azithromycin [Zithromax] 250 mg tablet 250 mg PO UD DOSE PK Qty: 6 0RF Rx Instructions: Take two (2) tablets today, then one (1) tablet days #2 thru #5 Referrals Follow up/Referrals: Provider,Referral, MD [Primary Care Provider] - See instructions Activity Restrictions/Add. Instructions Additional Instructions/Restrictions: *Monitor Temp, Over the counter Motrin or Tylenol as directed/as needed Tylenol every 4 hours and Motrin every 6 hours (as long as your family doctor has told you that you can take it) for fever or pain. and straight to ER if unable to lower temp less than 101.0 after medication given *Warm salt water gargles may help to soothe the throat *Throat Lozenges? *Warm fluids like tea with honey may help to soothe the throat? *Sleep elevated *Humidifier/Vaporizer *If you did not take Penicillin shot or was unable to, start taking antibiotic immediately and make sure that you take it for the FULL length of time although you should start to feel better in 24-48 hours *change toothbrush and toothpaste 24-48 hours after starting to take antibiotics so you do not reinfect yourself Monitor Temp. Tylenol and/or Ibuprofen as needed. ER if fever is no less than 101 despite alternating Tylenol and Ibuprofen * Encourage fluids, water, Gatorade, powerade, pedialyte if /toddler/or child *Cold fluids, popsicles and ice cream may feel good on his throat Follow up IMMEDIATELY for new or worsening symptoms or no Noticeable improvement over the next 48-72 hours. 911 for difficulty breathing or swallowing Clinical Impressions Clinical Impression: Strep throat Instructions Patient Instructions: DI for Strep Throat, Strep Throat Discharge ED Provider: Heather Haro [facility] [place] HPI General Stated complaint: sore throat soto,runny nose Mode of Arrival: Ambulatory Source of Information: Patient Limitations: No Limitations Time Seen by Provider: 10/20/23 11:10 Description of Symptoms (Recalled from Triage Doc. by RN): PATIENT C/O RUNNY NOSE TODAY AND SORE THROAT AND HEADACHE THAT STARTED TODAY HEENT Symptoms (Recalled from RN notes): Yes Resp Symptoms (Recalled from RN notes): No Skin Symptoms (Recalled from RN notes): No MS Symptoms (Recalled from RN notes): No Functional Status (Recalled from RN notes): WNL History of Present Illness Provider Complaint: Patient states that she has been exposed to strep throat States that she has been having sore throat, nasal congestion and headache that started today States that where she was exposed and feeling so bad she came in to get checked Related Data Previous Rx's Medication Instructions Recorded azithromycin 250 mg tablet 250 mg PO UD DOSE PK #6 tabs 12/19/22 (Zithromax) amoxicillin 875 mg tablet 875 mg PO Q12H #20 tabs 10/20/23 Allergies Allergy/AdvReac Type Severity Reaction Status Date / Time No Known Allergies Allergy Verified 12/19/22 14:19 Worker's Comp Is this a Worker's Comp case?: No [facility] Disclaimer: The information contained in this section may have been updated after the patient was seen, as this information can be updated by other users. Medical History 38 weeks gestation of Low back pain during Maternal obesity affecting , antepartum contractions Spontaneous rupture of amniotic membranes UTI (urinary tract infection) in in third trimester Surgical History History of cholecystectomy History of tonsillectomy Tympanic tube insertion Family History Other No significant family history Social History Smoking Status: Never smoker alcohol intake: never substance use type: denies use current occupational status: employed Travel in the last 8 weeks: None household members: spouse and children caffeine: Yes ROS Obtained: Yes All systems reviewed & no additional complaints except as documented and Yes Systems reviewed as appropriate & no additional complaints except as documented Constitutional Constitutional: Reports system reviewed and no additional complaints, except as documented and Reports as per HPI ENT Ears, Nose, Mouth, and Throat: Reports system reviewed and no additional complaints, except as documented, Reports as per HPI, Reports nasal congestion, Reports nasal discharge and Reports sore throat Cardiovascular Cardiovascular: Reports system reviewed and no additional complaints, except as documented and Reports as per HPI Respiratory Respiratory: Reports system reviewed and no additional complaints, except as documented and Reports as per HPI Gastrointestinal Gastrointestingal: Reports system reviewed and no additional complaints, except as documented and as per HPI Musculoskeletal Musculoskeletal: Reports system reviewed and no additional complaints, except as documented and Reports as per HPI Physical Exam General General appearance: alert and in no apparent distress ENT ENT exam: Present mucous membranes moist Expanded ENT Exam Throat exam: Present other (Pharyngeal erythema noted with PND) Respiratory Respiratory exam: Present normal lung sounds bilaterally; Absent respiratory distress or wheezes Cardiovascular Cardiovascular exam: Present regular rate, normal rhythm and normal heart sounds Neurological Exam Neurological exam: Present alert, oriented X3 and normal gait Medical Decision Making Gregg Inquiry Pt receiving controlled substance: No Gregg was queried for this patient: No Vital Signs: 10/20/23 10:45 10/20/23 11:02 Temperature 98.2 F 98.2 F Temperature Source Oral Pulse Rate 104 H Pulse Rate [Left Brachial] 104 H Respiratory Rate 20 20 Blood Pressure 119/84 Blood Pressure [Left Arm] 119/84 Blood Pressure Mean [Left Arm] 95 Blood Pressure Source [Left Arm] Automatic Cuff Blood Pressure Position [Left Arm] Sitting 02 Sat by Pulse Oximetry 100 Oxygen Delivery Method Room Air Lab Data Lab results reviewed: Yes I reviewed the patient's lab results. Lab Results 10/20/23 11:01: Strep Scn Rapid Clinic Positive A
== END 2023-10-20 11:18 | disposition home or self-care (01) ==
PROVIDERS: Emergency Provider Nurse Practitioner
DX: J02.0 Streptococcal pharyngitis (principal); R51.9 Headache, unspecified; R09.81 Nasal congestion
CPT/HCPCS: 87880; 99212; 99214; G0463